=== PATIENT | female | born 1970 | race Caucasian/White ===

== ENCOUNTER → 2020-07-15 10:08 | Outpatient (CLI) | payer BC, SELFPAY ==
--- NOTE | ~2020-07-15 | MM_ITS ---
EXAMINATION: MM scrn мария implant BI w dante HISTORY: Screening mammogram TECHNIQUE: Craniocaudal and mediolateral oblique 3-D tomosynthesis images with implant displacement a nd synthetic 2-D images were generated. Craniocaudal and mediolateral oblique views of the breasts wi thout implant displacement were obtained using full field digital mammography. CAD analysis was submi tted and interpreted. COMPARISON: 07/10/2019, 11/05/2018, 05/15/2018, 05/01/2018, 05/11/2016 BREAST PARENCHYMAL COMPOSITION: The breasts are heterogeneously dense, which may obscure small masses . FINDINGS: Stable left breast masses are considered benign give the lack of interval change. There is no evidence of suspicious mass, calcification, or architectural distortion to suggest malignancy in e ither breast. There has been no suspicious interval change. IMPRESSION: 1. No mammographic evidence of malignancy. 2. Recommend routine screening mammography in one year. BI-RADS Category 2: Benign finding(s). Reviewed, dictated and finalized at location A. E CARPENTER
== END ==
PROVIDERS: Visit Provider Obstetrics & Gynecology
DX: Z12.31 Encounter for screening mammogram for malignant neoplasm of breast (principal)
CPT/HCPCS: 77063; 77067

== ENCOUNTER 2020-09-12 08:31 | Emergency (ER) | payer BC, SELFPAY ==
[2020-09-12 08:40] VITALS: BP 156/87; PULSE 67; RESP 16; TEMP 36.5; O2SAT 98
[2020-09-12 09:06] LABS: Add Urine Microscopic? YES; Appearance Urine Cloudy (Clear); Bacteria Urine Trace /hpf; Bilirubin Urine Negative (Negative); Blood Urine 2+ (Negative); Color Urine Yellow (Yellow); Glucose Urine UA Negative (Negative); Ketones Urine Negative (Negative); Leukocyte Esterase Ur 2+ LEU/UL (Negative); Mucus Urine Rare /lpf; Nitrate Urine Negative (Negative); Protein Urine Negative (Negative); RBC Urine >75 /hpf (0-2); Specific Grav Ur 1.023 (1.001-1.035); Squamous Epithelial Cell Urine Moderate /hpf (Few); Transitional Epi Cells Urine Rare /hpf (None Seen); Urobilinogen Urine Negative mg/dL (<2.0); WBC Clumps Urine Present /HPF; WBC Urine >75 /hpf
--- NOTE | 2020-09-12 09:20 | ED.ABDPAIN ---
HPI - Abdominal Pain General Chief Complaint: Urogenital-Female Stated Complaint: uti sx Time Seen by Provider: 09/12/20 09:09 Source: patient Mode of arrival: ambulatory Limitations: no limitations History of Present Illness HPI narrative: Patient a 50-year-old female who presents with acute onset of urgency frequency and mild discomfort with urination with low back pain consistent with her history of chronic UTIs she has seen primary care for this. Patient denies any fever chills nausea vomiting URI symptoms or other complaints has not taken anything for her symptoms presents in no distress. Notes that she does have Pyridium at home but has not taken it. Denies history of urolithiasis Related Data Allergies Allergy/AdvReac Type Severity Reaction Status Date / Time hydrocodone Allergy Unknown Verified 10/15/17 08:26 morphine Allergy Unknown Verified 10/15/17 08:26 tetracycline Allergy Unknown Verified 10/15/17 08:26 zolpidem Allergy Unknown Verified 10/15/17 08:26 Review of Systems Review of Systems: All systems reviewed & are unremarkable except as noted in HPI and below PMFSH Past Medical History Medical History (Updated 09/12/20 @ 09:54 by Parmjit Augustin PA-C) Frequent UTI Surgical History Surgical History H/O: hysterectomy Family History Family History (Updated 04/10/18 @ 14:06 by DOCTOR UNKNOWN) Other Cerebrovascular accident Depression Diabetes mellitus Family history of Alzheimer's disease Family history of lung cancer Family history of mental disorder Social History Social History Smoking status: Former smoker Alcohol intake: current Exam Narrative: Exam Narrative: GENERAL: Well-appearing, well-nourished, and in no acute distress. HEAD: Normocephalic, atraumatic. EYES: PERRLA and EOMI. ENT: Nares clear, no rhinorrhea or epistaxis. Mucous membranes moist. CHEST: Clear to auscultation. No respiratory distress. No wheezes rales or rhonchi HEART: Regular rate and rhythm. No murmur heard. Normal peripheral pulses. ABDOMEN: Soft, nontender, nondistended EXTREMITIES: Normal range of motion. No edema. SKIN: Warm, dry, no rash. NEURO: No focal deficits. Alert and oriented x3. PSYCH: Normal mood and affect. Course Course Emergency Course: Patient presented with urinary tract infection notes that she will follow with primary care for further evaluation afebrile nontoxic-appearing no distress vital signs and ABCs intact and stable patient provided with reasons to return patient notes that she typically has been given ciprofloxacin by primary care which has resolved her symptoms and prefers this antibiotic. Patient's urine cultures were reviewed Vital Signs Vital signs: Vital Signs Temperature 97.7 F 09/12/20 08:40 Pulse Rate 67 09/12/20 08:40 Respiratory Rate 16 09/12/20 08:40 Blood Pressure 156/87 H 09/12/20 08:40 Pulse Oximetry 98 09/12/20 08:40 Temperature 97.7 F 09/12/20 08:40 Pulse Rate 67 09/12/20 08:40 Respiratory Rate 16 09/12/20 08:40 Blood Pressure 156/87 H 09/12/20 08:40 Pulse Oximetry 98 09/12/20 08:40 MDM - Abdominal Pain MDM Narrative Medical decision making narrative: Patient with urinary tract infection will be treated accordingly provided with reasons to return felt appropriate for outpatient reevaluation Lab Data Labs: Lab Results 09/12/20 Range/Units 08:46 Urine Color Yellow (Yellow) Urine Appearance Cloudy H (Clear) Urine pH 5.0 (5.0-9.0) Ur Specific [place] 1.023 (1.001-1.035) Urine Protein Negative (Negative) mg/dL Urine Glucose (UA) Negative (Negative) mg/dL Urine Ketones Negative (Negative) mg/dL Ur Blood (Man) 2+ H (Negative) Urine Nitrate Negative (Negative) Urine Bilirubin Negative (Negative) Urine Urobilinogen Negative (<2.0) mg/dL Leukocyte Estera
== END 2020-09-12 10:05 | disposition home or self-care (01) ==
PROVIDERS: Emergency Provider Emergency Medicine
DX: N39.0 Urinary tract infection, site not specified (principal); Z87.891 Personal history of nicotine dependence
CPT/HCPCS: 81001; 87086; 87088; 99283

== ENCOUNTER 2020-12-16 04:37 | Emergency (ER) | payer BC, SELFPAY ==
[2020-12-16 04:40] VITALS: BP 132/86; PULSE 63; RESP 16; TEMP 36.6; O2SAT 100
--- NOTE | 2020-12-16 05:20 | ED.GENADULT ---
HPI - General Adult General Chief complaint: Urogenital-Female Stated complaint: UTI Time Seen by Provider: 12/16/20 04:50 History of Present Illness HPI narrative: Patient 50-year-old female presents emergency department with chief complaint of dysuria. Patient reports that she has prior history of urinary tract infections and reports that she has had issues with the hormonal variation both from estrogen and also her thyroid. Patient states recently adjusted her estrogen and reported that this evening approximately 1 hour ago she started having burning with urination frequency. The patient states this is her typical presentation for urinary infection and reports that she is allergic to tetracyclines and has problems with nausea when she takes sulfa medications. Patient reports that she is normally treated with Cipro. Patient denies flank pain denies nausea vomiting denies abdominal pain. Related Data Allergies Allergy/AdvReac Type Severity Reaction Status Date / Time hydrocodone Allergy Unknown Unknown Verified 09/12/20 13:15 morphine Allergy Unknown Unknown Verified 09/12/20 13:15 tetracycline Allergy Unknown Unknown Verified 09/12/20 13:15 zolpidem Allergy Unknown Unknown Verified 09/12/20 13:15 Review of Systems Review of Systems: Narrative: A 10 system review of systems was completed on the patient and is negative except for what is stated in the HPI. Nursing and ancillary documentation was reviewed. PMFSH Past Medical History Medical History Frequent UTI Surgical History Surgical History H/O: hysterectomy Family History Family History Other Cerebrovascular accident Depression Diabetes mellitus Family history of Alzheimer's disease Family history of lung cancer Family history of mental disorder Social History Social History Smoking status: Former smoker Alcohol intake: current Gender identity (if verbalized by the patient): Female Exam Narrative: Exam Narrative: GENERAL: Well-appearing, well-nourished, and in no acute distress. HEAD: Normocephalic, atraumatic. EYES: PERRLA and EOMI. ENT: Nares clear, no rhinorrhea or epistaxis. Mucous membranes moist. NECK: Supple. CHEST: Clear to auscultation. No respiratory distress. HEART: Regular rate and rhythm. No murmur heard. Normal peripheral pulses. ABDOMEN: Soft, nontender, nondistended, normal active bowel sounds. EXTREMITIES: Normal range of motion. No edema. SKIN: Warm, dry, no rash. NEURO: No focal deficits. Alert and oriented x3. PSYCH: Normal mood and affect. Course Vital Signs Vital signs: Vital Signs Temperature 36.6 C 12/16/20 04:40 Pulse Rate 63 12/16/20 04:40 Respiratory Rate 16 12/16/20 04:40 Blood Pressure 132/86 12/16/20 04:40 Pulse Oximetry 100 12/16/20 04:40 Temperature 36.6 C 12/16/20 04:40 Pulse Rate 63 12/16/20 04:40 Respiratory Rate 16 12/16/20 04:40 Blood Pressure 132/86 12/16/20 04:40 Pulse Oximetry 100 12/16/20 04:40 Medical Decision Making Vital Signs Vital Signs: Vital Signs Temperature 36.6 C 12/16/20 04:40 Pulse Rate 63 12/16/20 04:40 Respiratory Rate 16 12/16/20 04:40 Blood Pressure 132/86 12/16/20 04:40 Pulse Oximetry 100 12/16/20 04:40 Temperature 36.6 C 12/16/20 04:40 Pulse Rate 63 12/16/20 04:40 Respiratory Rate 16 12/16/20 04:40 Blood Pressure 132/86 12/16/20 04:40 Pulse Oximetry 100 12/16/20 04:40 Lab Data Labs: Lab Results 12/16/20 Range/Units 04:59 Urine Color Yellow (Yellow) Urine Appearance Cloudy H (Clear) Urine pH 6.0 (5.0-9.0) Ur Specific [place] 1.020 (1.001-1.035) Urine Protein 2+ H (Negative) mg/dL Urine Glucose (UA) Negative (Ne
[2020-12-16 05:31] LABS: Add Urine Microscopic? YES; Appearance Urine Cloudy (Clear); Bacteria Urine Trace /hpf; Bilirubin Urine Negative (Negative); Blood Urine 3+ (Negative); Color Urine Yellow (Yellow); Glucose Urine UA Negative (Negative); Ketones Urine Negative (Negative); Leukocyte Esterase Ur 3+ LEU/UL (Negative); Mucus Urine Rare /lpf; Nitrate Urine Negative (Negative); Protein Urine 2+ mg/dL (Negative); RBC Urine >75 /hpf (0-2); Squamous Epithelial Cell Urine Occasional /hpf (Few); Urobilinogen Urine Negative mg/dL (<2.0); WBC Urine >75 /hpf
[2020-12-16] MEDS: CIPROFLOXACIN 500 MG TAB PO (05:50)
[2020-12-16 05:57] VITALS: BP 130/65; PULSE 60; RESP 16; TEMP 37.1; O2SAT 100
== END 2020-12-16 05:58 | disposition home or self-care (01) ==
PROVIDERS: Emergency Provider Emergency Medicine; PCP Chiropractor
DX: N30.01 Acute cystitis with hematuria (principal); Z87.891 Personal history of nicotine dependence
CPT/HCPCS: 81001; 87077; 87086; 87088; 87186; 99283; A9270

== ENCOUNTER → 2021-01-04 10:28 | Outpatient (CLI) | payer BC, SELFPAY ==
--- NOTE | ~2021-01-04 | US_ITS ---
EXAMINATION: US thyroid DATE: 01/04/2021 10:46 INDICATION: Nontoxic goiter TECHNIQUE: Multiple ultrasound images of the thyroid were obtained. COMPARISON: None. FINDINGS: The right thyroid lobe measures 2.5 x 0.6 x 0.7 cm. The left thyroid lobe measures 1.7 x 0.6 x 0.5 c m. 3 mm hypoechoic nodule versus pseudo nodule in the superior right thyroid lobe which is, too smal l to assess whether solid or cystic. Regardless at this size lesion remains below threshold for recom mendation for either biopsy or follow-up imaging. There is diffuse coarsened echotexture with increas ed vascular flow on color Doppler. IMPRESSION: 1. Small thyroid with coarsened echotexture and increased vascularity consistent with chronic lymphoc ytic (Clarke) thyroiditis. Reviewed, dictated and finalized at location A. IMPRESSION: 1. Small thyroid with coarsened echotexture and increased vascularity consisten t with chronic lymphocytic (Clarke) thyroiditis.
== END ==
PROVIDERS: PCP Nurse Practitioner Adult Health; Visit Provider Nurse Practitioner Adult Health
DX: E04.9 Nontoxic goiter, unspecified (principal)
CPT/HCPCS: 76536

== ENCOUNTER 2021-04-25 10:32 | Emergency (ER) | payer BC, SELFPAY ==
[2021-04-25 10:35] VITALS: BP 158/97; PULSE 69; RESP 16; TEMP 37.2; O2SAT 100
--- NOTE | 2021-04-25 11:06 | ED.FEMALEGU ---
HPI - Female Genitourinary General Chief complaint: Urogenital-Female Stated complaint: POS UTI Time Seen by Provider: 04/25/21 11:06 Source: patient and RN notes reviewed Mode of arrival: ambulatory Limitations: no limitations History of Present Illness HPI Narrative: 51-year-old female presents with concern for possible urinary tract infection. Reports history of frequent UTIs, has had 9 UTIs so far this year. Reports she is working with her primary care doctor to increase hormone replacement which has been slightly decrease in the frequency of urinary tract infections. Reports she noticed foul odor in her urine for 1 day, which is often a symptom of her UTI. She denies dysuria, frequency, urgency, flank pain, nausea, vomiting, abdominal pain. Denies intervention. MD elicited complaint: UTI Related Data Allergies Allergy/AdvReac Type Severity Reaction Status Date / Time hydrocodone Allergy Unknown Unknown Verified 09/12/20 13:15 morphine Allergy Unknown Unknown Verified 09/12/20 13:15 tetracycline Allergy Unknown Unknown Verified 09/12/20 13:15 zolpidem Allergy Unknown Unknown Verified 09/12/20 13:15 Sulfa (Sulfonamide Allergy Rash Verified 04/25/21 10:39 Antibiotics) Review of Systems Review of Systems: CONSTITUTIONAL: Denies malaise, chills, sweats, or fever. CARDIOVASCULAR: Denies chest pain, palpitations, or edema. RESPIRATORY: Denies cough or dyspnea. GASTROINTESTINAL: Denies abdominal pain, nausea, vomiting, diarrhea, bloody, or mucous stools. GENITOURINARY: Denies dysuria, frequency, urgency, abnormal vaginal discharge, or hematuria. Reports foul-smelling odor SKIN: Denies vaginal rash or itching. MUSCULOSKELETAL: Denies back pain or myalgia. All systems reviewed & are unremarkable except as noted in HPI and below PMFSH Past Medical History Medical History Frequent UTI Surgical History Surgical History H/O: hysterectomy Family History Family History Other Cerebrovascular accident Depression Diabetes mellitus Family history of Alzheimer's disease Family history of lung cancer Family history of mental disorder Social History Social History Smoking status: Former smoker Alcohol intake: current Gender identity (if verbalized by the patient): Female Comments At time of signature, agree with nursing past medical, surgical, social and family history. There is no relevant family history pertinent to the presenting complaint Exam Narrative: GENERAL: Well-appearing, well-nourished, and in no acute distress. HEAD: Normocephalic. EYES: PERRLA, conjunctivae clear. NECK: Supple. No lymphadenopathy CHEST: Clear to auscultation. No respiratory distress. HEART: Regular rate and rhythm. ABDOMEN: Soft, nontender upon palpation, nondistended, normal active bowel sounds, no palpable or pulsatile masses, no guarding. No CVA tenderness SKIN: Warm, dry, no rash. NEURO: Alert and oriented x3. PSYCH: Normal mood and affect Course Course Emergency Course: Discussed with patient option of waiting for urine culture results to start antibiotic, due to unremarkable UA. Patient is agreeable with that, however reports due to her frequent urinary tract infections is worried symptoms might worsen before the urine culture is complete. Discussed sending an antibiotic, which she will wait to start until culture is resulted or if symptoms worsen. Patient is aware of diagnosis, understands and agrees to treatment plan. Anticipatory guidance given. Patient agrees to follow-up as directed and is aware of reasons to seek care at the emergency department. Portions of this record may have been created with voice recognition software Vital Signs Vital signs: Vital Signs Coleman
== END 2021-04-25 11:06 | disposition home or self-care (01) ==
LOC: EXPGLEN 10:34
PROVIDERS: Emergency Provider Nurse Practitioner; PCP Nurse Practitioner Adult Health
DX: R82.90 Unspecified abnormal findings in urine (principal); Z87.891 Personal history of nicotine dependence; Z87.440 Personal history of urinary (tract) infections
CPT/HCPCS: 81003; 87086; 99213; G0463

== ENCOUNTER 2021-05-26 09:24 | Emergency (ER) | payer BC, SELFPAY ==
--- NOTE | ~2021-05-26 | CT_ITS ---
EXAMINATION: CTA chest PE protocol EXAM DATE: 05/26/2021 10:22 INDICATION: COVID +, chest pain. TECHNIQUE: Spiral CTA of the chest (pulmonary arteries) was performed with 100 cc Omnipaque 350 intr avenous contrast injection. Images were acquired during the pulmonary arterial phase. Coronal maxi mum intensity projection 3D-reconstructions were created by the technologist on dedicated workstation . Axial, coronal and sagittal reformatted images were reviewed. The dose-length product (DLP) for t his examination was 229.41 mGy-cm. The exposure was tailored according to patient size (auto mA exp osure control), and iterative reconstruction (ASIR) was used as additional dose reduction technique. There is no prior study for comparison. FINDINGS: Pulmonary arteries are well opacified and without intraluminal filling defects. No thora cic aortic dissection. Bilateral small to moderate amount of patchy peripheral predominant groundglas s opacities Appearance is typical of early stage COVID 19 pneumonia. Less likely acute possibilitie s include influenza, pulmonary edema or hemorrhage. Some chronic processes that can have this appeara nce include cryptogenic organizing pneumonia, desquamative interstitial pneumonia, nonspecific inters titial pneumonia, drug toxicity, connective tissue disease. Please clinically correlate and test as a ppropriate. There are no pleural or pericardial effusions. Tracheobronchial tree is patent. There is no media stinal, hilar or axillary lymphadenopathy. There is no pneumothorax. Heart normal in size. No e vidence of coronary arterial calcification. Upper abdomen is unremarkable. There is thoracic spond ylosis without osteoblastic or osteolytic lesions identified. There are cholecystectomy clips. IMPRESSION: 1. Patchy bilateral groundglass airspace disease probably COVID 19 . 2. No pulmonary emboli. Reviewed, dictated and finalized at location A.
--- NOTE | ~2021-05-26 | XR_ITS ---
EXAMINATION: XR chest 1V portable EXAM DATE: 05/26/2021 09:58 INDICATION: COVID PUI, shortness of breath cough and fever. TECHNIQUE: Portable AP frontal chest x-ray was obtained. Comparison is made to prior examination from 05/15/2017. FINDINGS: Small amount of ill-defined right-sided predominant airspace disease suspected, could be CO VID pneumonia given history provided. No confluent consolidation, pneumothorax or pleural effusion anglin spected. Cardiomediastinal silhouette is normal. There are no osseous abnormalities identified. IMPRESSION: Small regions ill-defined infectious process suspected. Reviewed, dictated and finalized at location A.
--- NOTE | 2021-05-26 09:34 | ECG_ITS ---
Measurements Intervals [place] Rate: 93 P: 69 NV: 131 QRS: 92 QRSD: 85 T: 38 QT: 341 QTc: 426 Interpretive Statements SINUS RHYTHM RIGHT AXIS DEVIATION BASELINE ARTIFACT- V4-V6 BORDERLINE ECG Electronically Signed On 05-26-2021 9:54:18 CDT by Nilton Euceda D.O.
--- NOTE | 2021-05-26 09:43 | ED.SOB ---
HPI - SOB/Dyspnea General Chief Complaint: Shortness of Breath/Dyspnea Stated Complaint: covid +, sob Time Seen by Provider: 05/26/21 09:43 Source: patient Mode of arrival: ambulatory Limitations: no limitations History of Present Illness HPI Narrative: Patient is a 51-year-old female with a history of Clarke's thyroiditis who presents for evaluation of cough, fever, myalgias. Patient reports that she has been symptomatic with fever, dry cough, myalgias, lethargy since May 17. Patient's and son have tested positive for Covid. Patient is not vaccinated. She states that she did not get herself tested given they were both positive and she assumed that she had Covid illness based on her symptoms. She reports intermittent chest pain, but denies chest pain currently. She denies palpitations. No calf swelling or leg pain. Denies rashes. Denies loss of sense of taste or smell. Had diarrhea earlier in her course of illness which is now resolved. Patient decided to come to the emergency department when she had increasing shortness of breath at rest worsened with exertion. Related Data Allergies Allergy/AdvReac Type Severity Reaction Status Date / Time hydrocodone Allergy Unknown Unknown Verified 09/12/20 13:15 morphine Allergy Unknown Unknown Verified 09/12/20 13:15 tetracycline Allergy Unknown Unknown Verified 09/12/20 13:15 zolpidem Allergy Unknown Unknown Verified 09/12/20 13:15 Sulfa (Sulfonamide Allergy Rash Verified 04/25/21 10:39 Antibiotics) Review of Systems Review of Systems: CONSTITUTIONAL: Reports fever and chills EYES: Denies visual changes, redness, or discharge. ENT: Reports rhinorrhea, congestion CARDIOVASCULAR: Reports intermittent chest pain without palpitations RESPIRATORY: Reports cough and shortness of breath GASTROINTESTINAL: Denies abdominal pain, nausea, vomiting, or diarrhea. GENITOURINARY: Denies dysuria or hematuria. SKIN: Denies rash or itching. MUSCULOSKELETAL: Denies back pain, joint pain, reports myalgias NEUROLOGIC: Reports headache without numbness, reports feeling diffusely weak PMFSH Past Medical History Medical History Frequent UTI Surgical History Surgical History H/O: hysterectomy Family History Family History Other Cerebrovascular accident Depression Diabetes mellitus Family history of Alzheimer's disease Family history of lung cancer Family history of mental disorder Social History Social History Smoking status: Former smoker Alcohol intake: current Gender identity (if verbalized by the patient): Female Exam Narrative: GENERAL: Awake, alert, conversant, anxious appearing HEAD: Normocephalic, atraumatic. EYES: PERRLA and EOMI. ENT: Nares clear, no rhinorrhea or epistaxis. Mucous membranes moist. NECK: Supple. CHEST: No respiratory distress, breathing even and non labored HEART: Regular rate, sinus rhythm ABDOMEN:Non distended, non tender EXTREMITIES: Normal range of motion. No edema. SKIN: Warm, dry, no rash. NEURO:No focal deficits. Alert and oriented x3 Course Vital Signs Vital signs: Vital Signs Temperature 37.9 C H 05/26/21 09:52 Pulse Rate 88 05/26/21 09:52 Respiratory Rate 18 05/26/21 09:52 Blood Pressure 161/96 H 05/26/21 09:52 Pulse Oximetry 99 05/26/21 09:52 Temperature 37.9 C H 05/26/21 09:52 Pulse Rate 76 05/26/21 13:14 Respiratory Rate 16 05/26/21 13:14 Blood Pressure 145/110 H 05/26/21 13:14 Pulse Oximetry 99 05/26/21 13:14 MDM - SOB/Dyspnea MDM Narrative Medical decision making narrative: Patient is a 51-year home who presented for evaluation of cough, fever in the setting of was likely Covid illness. Patient does have 2 close exposures it with her son and has been be
[2021-05-26 09:52] VITALS: BP 161/96; PULSE 88; RESP 18; TEMP 37.9; O2SAT 99
[2021-05-26 09:53] LABS: Basophils Percent Auto 0.4 % (0.2-1.2); Eosinophils Percent Auto 0.2 % (0-4.4); Hematocrit 46.8 % (37.0-47.0); Hemoglobin 15.6 g/dL (12.0-15.0); Immature Granulocyte Absolute 0.01 K/mm3 (0.00-0.031); Immature Granulocyte Percent A 0.2 % (0-0.5); Lymphocytes Absolute Auto 2.01 K/mm3 (0.9-3.2); Lymphocytes Percent Auto 36.9 % (18.3-44.2); Mean Corpuscular HGB Conc 33.3 g/dl (32-36); Mean Corpuscular Hemoglobin 29.3 pg (26-34); Mean Platelet Volume 10.8 fl (7.4-10.4); Monocytes Absolute Auto 0.5 K/mm3 (0.1-0.6); Monocytes Percent Auto 9.7 % (2.6-8.5); Neutrophils Absolute Auto 2.9 K/mm3 (1.3-6.7); Neutrophils Percent Auto 52.6 % (45.5-73.1); Platelet Count Result 239 k/mm3 (150-375); Red Blood Count 5.32 M/mm3 (4.2-5.4); Red Cell Distribution Width 12.9 % (11.5-14.5); White Blood Count 5.4 K/mm3 (4.5-10.0)
[2021-05-26 10:09] LABS: Alanine Aminotransferase 27 U/L (4-35); Albumin Level 4.1 g/dL (3.5-5.1); Alkaline Phosphatase 93 U/L (38-126); Anion Gap 8 mmol/L (8-16); Aspartate Amino Transferase 33 U/L (14-36); Bilirubin,Total 0.5 mg/dL (0.2-1.3); Blood Urea Nitrogen 8 mg/dL (7-17); Calcium 8.2 mg/dL (8.4-10.2); Carbon Dioxide 26 mmol/L (22-30); Chloride 103 mmol/L (98-107); Estimated CRCL calculation 78 ml/min; Estimated Glomerular Filt Rate > 60; Glucose 100 mg/dL (65-110); Potassium 4.3 mmol/L (3.4-5.0); Sodium 137 mmol/L (137-145)
[2021-05-26] MEDS: SODIUM CHLORIDE 0.9% IV 1,000 ML 999 ML IV CONT (10:40)
[2021-05-26] MEDS: ACETAMINOPHEN 500 MG TABLET 1000 MG PO (10:41)
[2021-05-26 11:00] VITALS: BP 155/108; PULSE 72; RESP 15; O2SAT 100
[2021-05-26 11:57] LABS: INR 0.9; Prothrombin Time 11.8 Seconds (11.1-14.7)
[2021-05-26 11:58] LABS: Partial Thromboplastin Time 26.7 SECONDS (22.3-36.8)
[2021-05-26 12:19] LABS: Troponin I < 0.012 ng/mL (0.000-0.034)
[2021-05-26 13:14] VITALS: BP 145/110; PULSE 76; RESP 16; O2SAT 99
[2021-05-26 13:52] LABS: EDCOVIDSCREEN Negative (Negative)
[2021-05-26 18:35] LABS: SARS-CoV-2 RNA PCR Positive
== END 2021-05-26 14:53 | disposition home or self-care (01) ==
PROVIDERS: Emergency Provider Emergency Medicine; PCP Nurse Practitioner Adult Health
DX: U07.1 COVID-19 (principal); J06.9 Acute upper respiratory infection, unspecified; E06.3 Autoimmune thyroiditis; Z87.440 Personal history of urinary (tract) infections; Z87.891 Personal history of nicotine dependence; R94.31 Abnormal electrocardiogram [ECG] [EKG]; R91.8 Other nonspecific abnormal finding of lung field
CPT/HCPCS: 36415; 71045; 71275; 80053; 84484; 85025; 85610; 85730; 87426; 93005; 96360; 99284; A9270; C9803; J7030; Q9967; U0003; U0005

== ENCOUNTER → 2021-07-27 07:38 | Outpatient (CLI) | payer BC, SELFPAY ==
--- NOTE | ~2021-07-27 | US_ITS ---
EXAMINATION: US abdomen complete EXAM DATE: 07/27/2021 08:36 INDICATION: R10.12 - Left upper quadrant pain TECHNIQUE: Multiple grayscale and Doppler images of the complete abdomen were obtained (by a technolo gist who performed the scan) and subsequently reviewed. Comparison is made to prior examination from 10/01/2017. FINDINGS: The abdominal aorta is normal in caliber. Visualized portion IVC is patent. The pancreatic head a nd body are normal in appearance. The pancreatic tail is not visualized. The liver has normal echogenicity and contour. There are no focal liver lesions identified. Portal venous flow was seen in the hepatopedal, normal direction and has normal Doppler waveform. Common bile duct measures 1.3 mm, which is dilated, but not uncommon following cholecystectomy. There is mild intrahepatic biliary duct dilation. Gallbladder fossa unremarkable. Right kidney: There is normal contour and echogenicity. It measures 11.8 x 4.1 x 4.6 centimeters. There are no focal renal lesions identified. There is no hydronephrosis. Left kidney: There is normal contour and echogenicity. It measures 11.0 x 5.6 x 4.1 centimeters. T here are no focal renal lesions identified. There is no hydronephrosis. The spleen measures 9 centimeters and is morphologically normal. IMPRESSION: Biliary dilation, common finding post cholecystectomy. Reviewed, dictated and finalized at location A. SUPERVISOR
== END ==
PROVIDERS: PCP Family Medicine; Visit Provider Family Medicine
DX: R10.12 Left upper quadrant pain (principal)
CPT/HCPCS: 76700

== ENCOUNTER → 2021-09-08 13:05 | Outpatient (CLI) | payer BC, SELFPAY ==
--- NOTE | ~2021-09-08 | CT_ITS ---
EXAMINATION: CT abdomen w con INDICATION: Right upper quadrant pain TECHNIQUE: Computed tomographic images of the abdomen were obtained after the administration of 100 c c of Omnipaque 350 intravenous contrast. The dose-length product (DLP) was 292.94 mGy-cm. Automated e xposure control and iterative reconstruction technique were employed. COMPARISON: 09/30/2017 FINDINGS: Minimal dependent atelectasis is present in the lung bases. The heart size is normal. Parti ally imaged bilateral breast implants are noted. There is a small sliding hiatal hernia. There are ch anges of interval cholecystectomy. There is chronic marked enlargement of the common bile duct there is also mild chronic enlargement of the pancreatic duct. Cysts of the liver measure up to 4 mm. The s pleen and adrenal glands are normal. The kidneys are unremarkable. There are no pathologically enlarg ed abdominal lymph nodes. There is no free intraperitoneal gas or evidence of bowel obstruction. IMPRESSION: 1. No CT correlate for the patient's symptoms. 2. 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 3. Interval cholecystectomy. Reviewed, dictated and finalized at location F. WASHING MACHINE OPERATOR IMPRESSION: 1. No CT correlate for the patient's symptoms. 2. Chronic fusiform enlargement of the common bile duct suggestive of type I ch oledochal cyst. 3. Interval cholecystectomy.
== END ==
PROVIDERS: PCP Family Medicine; Visit Provider Family Medicine
DX: R10.12 Left upper quadrant pain (principal)
CPT/HCPCS: 74160; Q9967

== ENCOUNTER 2022-01-27 07:07 | Emergency (ER) | payer BC, SELFPAY ==
[2022-01-27] VITALS (18 sets, daily range): BP systolic 149–158; BP diastolic 85–103; PULSE 55–83; RESP 14–26; TEMP 36.4; O2SAT 97–100
--- NOTE | ~2022-01-27 | CT_ITS ---
EXAMINATION: CTA chest PE protocol DATE: 01/27/2022 09:01 INDICATION: Left chest and shoulder pain TECHNIQUE: Computed tomography angiography (CTA) of the chest was performed with 100 mL Omnipaque-350 intravenous contrast timed to evaluate the pulmonary arteries. Coronal maximum intensity projection 3D-reconstructions were created by the technologist. The dose-length product (DLP) was 212.29 mGy-cm. Automated exposure control and iterative reconstruction technique were employed. COMPARISON: 05/26/2021 FINDINGS: The pulmonary arteries are well-opacified. No pulmonary embolism is identified. The lungs are free of acute opacities. There is no pneumothorax. Bilateral breast implants are noted. No pathol ogically enlarged thoracic lymph nodes are identified. The heart size is normal. There is moderate th oracic spondylosis. IMPRESSION: 1. No pulmonary embolism or acute cardiopulmonary abnormality. Reviewed, dictated and finalized at location A.
--- NOTE | ~2022-01-27 | XR_ITS ---
EXAMINATION: XR shoulder LT min 2V INDICATION: Left shoulder pain TECHNIQUE: Four views of the left shoulder are submitted. COMPARISON: None FINDINGS: Normal alignment. No fracture. Glenohumeral and acromioclavicular joint spaces are normal. Soft tissues are unremarkable. IMPRESSION: 1. No acute osseous abnormality. Reviewed, dictated and finalized at location A.
--- NOTE | ~2022-01-27 | XR_ITS ---
EXAMINATION: XR chest 2V DATE: 01/27/2022 07:40 INDICATION: Left chest and shoulder pain TECHNIQUE: Frontal and lateral views of the chest are obtained COMPARISON: 05/26/2021 FINDINGS: The lungs are free of acute opacities. There is no pleural effusion or pneumothorax. The ca rdiomediastinal silhouette is normal. There is mild thoracic spondylosis. Surgical clips in the right upper quadrant are likely from prior cholecystectomy. IMPRESSION: 1. No acute cardiopulmonary abnormality. Reviewed, dictated and finalized at location A.
--- NOTE | 2022-01-27 07:12 | ECG_ITS ---
Measurements Intervals [place] Rate: 66 P: 64 HI: 138 QRS: 74 QRSD: 92 T: 44 QT: 405 QTc: 427 Interpretive Statements SINUS RHYTHM COMPARED TO ECG 05/26/2021 09:38:49 NO SIGNIFICANT CHANGES Electronically Signed On 01-27-2022 9:27:57 CDT by Mita Urena M.D.
[2022-01-27 07:34] LABS: Basophils Percent Auto 0.4 % (0.2-1.2); Eosinophils Absolute Auto 0.3 K/mm3 (0-0.3); Eosinophils Percent Auto 4.2 % (0-4.4); Hemoglobin 14.2 g/dL (12.0-15.0); Immature Granulocyte Absolute 0.02 K/mm3 (0.00-0.031); Immature Granulocyte Percent A 0.3 % (0-0.5); Lymphocytes Absolute Auto 2.52 K/mm3 (0.9-3.2); Lymphocytes Percent Auto 34.5 % (18.3-44.2); Mean Corpuscular Hemoglobin 29.2 pg (26-34); Mean Corpuscular Volume 88.5 fl (80-100); Monocytes Absolute Auto 0.7 K/mm3 (0.1-0.6); Monocytes Percent Auto 9.3 % (2.6-8.5); Neutrophils Absolute Auto 3.8 K/mm3 (1.3-6.7); Neutrophils Percent Auto 51.3 % (45.5-73.1); Platelet Count Result 277 k/mm3 (150-375); Red Blood Count 4.86 M/mm3 (4.2-5.4); Red Cell Distribution Width 12.4 % (11.5-14.5); White Blood Count 7.3 K/mm3 (4.5-10.0)
--- NOTE | 2022-01-27 07:37 | ED.EXTPRO ---
HPI - Extremity Problem General Chief complaint: Extremity Problem,Nontraumatic Stated complaint: left shoulder pain Time Seen by Provider: 01/27/22 07:12 History of Present Illness HPI Narrative: 51-year-old female presents to the emergency department for evaluation of left lateral chest and left arm pain. Patient states that she woke up this morning she was having back pain that radiated around from her scapula laterally to her left chest. Patient states she does also have some associated decreased sensation of her left arm. Patient describes the pain as sharp. Patient denies any associated shortness of breath. Patient denies any incident of injury. Patient denies any previous cardiac issues. Patient denies any recent illnesses coughs colds or fevers. Related Data Home Medications Medication Instructions Recorded Confirmed cholecalciferol (vitamin D3) 125 125 mcg PO DAILY 07/06/21 01/11/22 mcg (5,000 unit) capsule liothyronine 25 mcg tablet 25 mcg PO DAILY 07/06/21 01/11/22 progesterone micronized 100 mg 50 mg PO QAM 07/06/21 01/11/22 capsule (Prometrium) testosterone cypionate 200 mg/mL See Rx Instructions IM ONCE 07/06/21 01/11/22 intramuscular oil conjugated estrogens 25 mg See Rx Instructions IM ONCE 01/11/22 01/11/22 solution for injection levothyroxine 100 mcg capsule 100 mcg PO DAILY 01/11/22 01/11/22 (Tirosint) Allergies Allergy/AdvReac Type Severity Reaction Status Date / Time hydrocodone Allergy Unknown Unknown Verified 01/27/22 07:18 morphine Allergy Unknown Unknown Verified 01/27/22 07:18 tetracycline Allergy Unknown Unknown Verified 01/27/22 07:18 zolpidem Allergy Unknown Unknown Verified 01/27/22 07:18 Sulfa (Sulfonamide Allergy Rash Verified 01/27/22 07:18 Antibiotics) Review of Systems Review of Systems: CONSTITUTIONAL: Denies fever, chills, or sweats. EYES: Denies visual changes, redness, or discharge. ENT: Denies rhinorrhea, congestion, sore throat, or otalgia. CARDIOVASCULAR: See HPI RESPIRATORY: See HPI GASTROINTESTINAL: Denies abdominal pain, nausea, vomiting, or diarrhea. GENITOURINARY: Denies dysuria or hematuria. SKIN: Denies rash or itching. MUSCULOSKELETAL: Denies back pain, joint pain, or myalgia. NEUROLOGIC: Denies headache, numbness, or weakness. [facility] Past Medical History Medical History Abdominal pain BMI 26.0-26.9,adult BMI 27.0-27.9,adult Frequent UTI Hormone imbalance LUQ pain Thyroid disease Surgical History Surgical History H/O: hysterectomy History of breast augmentation History of Hx of knee surgery Family History Family History Other Cerebrovascular accident Depression Diabetes mellitus Family history of Alzheimer's disease Family history of lung cancer Family history of mental disorder Social History Social History Tobacco type: cigarettes Alcohol intake: current Gender identity (if verbalized by the patient): Female Exam Narrative: APPEARANCE: Well appearing, no pain, no distress, well-nourished. HEAD: normocephalic, atraumatic. EYES: PERRLA/EOMI, conjunctivae clear. NOSE: Normal no drainage NECK: Supple. No adenopathy, no masses. RESPIRATORY: Airway patent, respirations nonlabored. Clear to auscultation bilaterally, no rales, rhonchi, wheezing. CARDIOVASCULAR: Regular rate and rhythm without murmurs rubs or gallops. Reproducible left lateral tenderness to palpation. ABDOMINAL: Soft, nontender, nondistended, normal bowel sounds MUSCULOSKELETAL: Moves all extremities. Strength/ROM intact, No edema, No calf tenderness. NEURO: Alert. Cranial nerves II through XII intact. Good gait. Good coordination SKIN: Warm, dry. Normal Color. No overlying rash or cellulitis or abnormality at the area of left
[2022-01-27 07:44] LABS: Alanine Aminotransferase 21 U/L (6-35); Albumin Level 3.8 g/dL (3.5-5.1); Alkaline Phosphatase 67 U/L (38-126); Anion Gap 2 mmol/L (8-16); Aspartate Amino Transferase 27 U/L (14-36); Bilirubin,Total 0.5 mg/dL (0.2-1.3); Blood Urea Nitrogen 13 mg/dL (7-17); Calcium 8.3 mg/dL (8.4-10.2); Carbon Dioxide 25 mmol/L (22-30); Chloride 107 mmol/L (98-107); Estimated CRCL calculation 87 ml/min; Estimated Glomerular Filt Rate > 60; Glucose 100 mg/dL (65-110); Lipase 208 U/L (23-300); Potassium 4.3 mmol/L (3.4-5.0); Sodium 134 mmol/L (137-145)
[2022-01-27 07:46] LABS: Partial Thromboplastin Time 23.6 SECONDS (22.3-36.8); Prothrombin Time 13.2 Seconds (11.1-14.7)
[2022-01-27 07:55] LABS: Troponin I < 0.012 ng/mL (0.000-0.034)
[2022-01-27 08:13] LABS: D Dimer 0.55 ug/mL (<0.48)
[2022-01-27] MEDS: ASPIRIN 81 MG CHEWABLE TABLET 324 MG PO (08:21)
[2022-01-27] MEDS: NITROGLYCERIN SL 0.4 MG TABLET SUBLINGUAL (08:22)
[2022-01-27 10:37] LABS: Troponin I < 0.012 ng/mL (0.000-0.034)
[2022-01-27] MEDS: KETOROLAC 15 MG/ML VIAL (*BKC) IV PUSH (11:26)
== END 2022-01-27 11:38 | disposition home or self-care (01) ==
PROVIDERS: Emergency Provider Emergency Medicine; PCP Family Medicine
DX: R09.1 Pleurisy (principal); E07.9 Disorder of thyroid, unspecified; F17.210 Nicotine dependence, cigarettes, uncomplicated
CPT/HCPCS: 36415; 71046; 71275; 73030; 80053; 83690; 84484; 85025; 85380; 85610; 85730; 93005; 96374; 99284; A9270; J1885; Q9967

== ENCOUNTER → 2022-04-06 15:27 | Outpatient (CLI) | payer BC, SELFPAY ==
--- NOTE | ~2022-04-06 | MM_ITS ---
EXAMINATION: MM scrn мария implant BI w dante HISTORY: Screening mammogram TECHNIQUE: Craniocaudal and mediolateral oblique 3-D tomosynthesis images with implant displacement a nd synthetic 2-D images were generated. Craniocaudal and mediolateral oblique views of the breasts wi thout implant displacement were obtained using full field digital mammography. CAD analysis was submi tted and interpreted. COMPARISON: 07/15/2020, 07/10/2019, 05/01/2018 bilateral implant screening mammogram examinations 11/05/2018 complete left breast ultrasound BREAST PARENCHYMAL COMPOSITION: The breasts are heterogeneously dense, which may obscure small masses . FINDINGS: Status post bilateral augmentation mammoplasty There is no evidence of suspicious mass, allen cification, or architectural distortion to suggest malignancy in either breast. There has been no carlos picious interval change. IMPRESSION: 1. No mammographic evidence of malignancy. 2. Recommend routine screening mammography in one year. BI-RADS Category 2: Benign finding(s). Reviewed, dictated and finalized at location A.
== END ==
PROVIDERS: Visit Provider Obstetrics & Gynecology
DX: Z12.31 Encounter for screening mammogram for malignant neoplasm of breast (principal)
CPT/HCPCS: 77063; 77067

== ENCOUNTER 2022-05-25 07:30 | Outpatient (CLI) | payer BC, SELFPAY ==
--- NOTE | 2022-05-25 | ECG_ITS ---
Measurements Intervals [place] Rate: 74 P: 72 FL: 129 QRS: 86 QRSD: 92 T: 59 QT: 389 QTc: 433 Interpretive Statements SINUS RHYTHM POSSIBLE LEFT ATRIAL ENLARGEMENT BASELINE ARTIFACT- I, II, III, AVR, AVL BORDERLINE ECG COMPARED TO ECG 01/27/2022 07:19:13 NO SIGNIFICANT CHANGES Electronically Signed On 05-25-2022 8:11:27 CDT by Nilton Euceda D.O.
== END 2022-05-25 07:31 | disposition home or self-care (01) ==
LOC: ANHLAB 07:32
PROVIDERS: Visit Provider Nurse Practitioner Adult Health
DX: Z01.818 Encounter for other preprocedural examination (principal)
CPT/HCPCS: 93005

== ENCOUNTER → 2022-12-24 08:25 | Outpatient (CLI) | payer BC, SELFPAY ==
--- NOTE | ~2022-12-24 | XR_ITS ---
EXAMINATION: XR ankle LT 2V, XR ankle RT 2V, XR foot LT 2V, XR foot RT 2V DATE: 12/24/2022 09:49 INDICATION: Multiple joint pain TECHNIQUE: 1. Anteroposterior and lateral view of the left ankle were obtained. 2. Dorsoplantar and lateral views of the left foot were obtained. 3. Anteroposterior and lateral view of the right ankle were obtained. 4. Dorsoplantar and lateral views of the right foot were obtained. COMPARISON: None. FINDINGS: Left foot and ankle: Alignment of the left foot and ankle is normal. No fracture or osteochondral lesion. Mild polyarticul ar osteoarthritis involving several of the tarsal metatarsal, metatarsophalangeal and interphalangeal joints. No erosions to suggest an inflammatory arthritis. No periosteal reaction. Small Achilles and plantar calcaneal spurs. No ankle joint effusion. Soft tissues are unremarkable. Right foot and ankle: Alignment of the right foot and ankle is normal. No fracture or osteochondral lesion. Relatively symm etric pattern of mild polyarticular osteoarthritis at several of the tarsal metatarsal, metatarsophal angeal and interphalangeal joints. No erosions to suggest an inflammatory arthritis. No periosteal re action. Small Achilles and plantar calcaneal spurs. No ankle joint effusion. The soft tissues are unr emarkable. IMPRESSION: 1. Relatively symmetric pattern of mild polyarticular osteoarthritis at the bilateral mid and forefee t. 2. Bilateral small Achilles and plantar calcaneal spurs. Reviewed, dictated and finalized at location B. IMPRESSION: 1. Relatively symmetric pattern of mild polyarticular osteoarthritis at the basil ateral mid and forefeet. 2. Bilateral small Achilles and plantar calcaneal spurs. IMPRESSION: 1. Relatively symmetric pattern of mild polyarticular osteoarthritis at the basil ateral mid and forefeet. 2. Bilateral small Achilles and plantar calcaneal spurs. IMPRESSION: 1. Relatively symmetric pattern of mild polyarticular osteoarthritis at the basil ateral mid and forefeet. 2. Bilateral small Achilles and plantar calcaneal spurs.
--- NOTE | ~2022-12-24 | XR_ITS ---
EXAMINATION: XR_KNEE1-2VLT_CR, XR_KNEE1-2VRT_CR DATE: 12/24/2022 09:49 INDICATION: Multiple joint pain. TECHNIQUE: 1. Weight bearing anteroposterior and lateral views of the left knee were obtained. 2. Weight bearing anteroposterior and lateral views of the right knee were obtained. COMPARISON: None. FINDINGS: Normal alignment at both knees. No fractures. Joint spaces appear normal in all 3 compartments of bot h knees. Tiny marginal osteophytes at the cephalad aspect of the bilateral patellae with additional a symmetric small marginal osteophytes at the lateral left patella and trochlea consistent with at leas t mild bilateral patellofemoral osteoarthritis. Soft tissues are unremarkable with no knee joint effu sions. IMPRESSION: 1. Mild bilateral patellofemoral osteoarthritis. Reviewed, dictated and finalized at location B. IMPRESSION: 1. Mild bilateral patellofemoral osteoarthritis.
--- NOTE | ~2022-12-24 | XR_ITS ---
EXAMINATION: XR hand RT 2V, XR wrist LT 2V, XR wrist RT 2V, XR hand LT 2V DATE: 12/24/2022 09:49 INDICATION: Multiple joint pain TECHNIQUE: 1. Posteroanterior and lateral views of the left wrist were obtained. 2. Dorsal palmar and lateral views of the left hand were obtained. 3. Posteroanterior and lateral views of the right wrist were obtained. 4. Dorsal palmar and lateral views of the right hand were obtained. COMPARISON: None. FINDINGS: Left hand and wrist: Alignment of the left hand and wrist is normal. No fracture identified. Mild osteoarthritis at the d istal radioulnar and several interphalangeal joints. No cortical erosions to suggest inflammatory art hritis. No focal soft tissue swelling. Right hand and wrist: Alignment of the right hand and wrist is normal. No fracture identified. Similar pattern of mild ost eoarthritis at the distal radioulnar and multiple interphalangeal joints. No erosions. No focal soft tissue swelling. IMPRESSION: 1. Relatively symmetric typical pattern of mild polyarticular osteoarthritis at the bilateral distal radioulnar and multiple interphalangeal joints. Reviewed, dictated and finalized at location B. IMPRESSION: 1. Relatively symmetric typical pattern of mild polyarticular osteoarthritis at the bilateral distal radioulnar and multiple interphalangeal joints. IMPRESSION: 1. Relatively symmetric typical pattern of mild polyarticular osteoarthritis at the bilateral distal radioulnar and multiple interphalangeal joints. IMPRESSION: 1. Relatively symmetric typical pattern of mild polyarticular osteoarthritis at the bilateral distal radioulnar and multiple interphalangeal joints.
--- NOTE | ~2022-12-24 | XR_ITS ---
EXAMINATION: XR hip BI wo pelvis DATE: 12/24/2022 09:49 INDICATION: Multiple joint pain. TECHNIQUE: Anteroposterior and frog-leg lateral views of the left and right hips were obtained. COMPARISON: None. FINDINGS: Alignment is normal. No fracture or suspected osteonecrosis. Bone island at the left femoral head. Bi lateral hip joint spaces are normal. Mild bilateral sacroiliac osteoarthritis. Soft tissues are unrem arkable. IMPRESSION: 1. Mild bilateral sacroiliac osteoarthritis with normal bilateral hips. Reviewed, dictated and finalized at location B.
== END ==
PROVIDERS: PCP Family Medicine; Visit Provider Internal Medicine Rheumatology
DX: M16.0 Bilateral primary osteoarthritis of hip (principal); M17.0 Bilateral primary osteoarthritis of knee; M19.042 Primary osteoarthritis, left hand; M19.041 Primary osteoarthritis, right hand; M19.072 Primary osteoarthritis, left ankle and foot; M19.071 Primary osteoarthritis, right ankle and foot; M77.32 Calcaneal spur, left foot; M77.31 Calcaneal spur, right foot
CPT/HCPCS: 73100; 73120; 73521; 73560; 73600; 73620

== ENCOUNTER → 2023-09-23 10:12 | Outpatient (REF) | payer BC, SELFPAY | LOC: ANHLAB 10:12 | PROVIDERS: PCP Family Medicine; Visit Provider Plastic Surgery | DX: L72.3 Sebaceous cyst (principal) | CPT/HCPCS: 88305 ==

== ENCOUNTER 2024-07-02 15:51 | Outpatient (CLI) | payer BC, SELFPAY ==
--- NOTE | ~2024-07-02 | MM_ITS ---
EXAMINATION: MM screening мария BI w dante HISTORY: Screening TECHNIQUE: Craniocaudal and mediolateral oblique 3-D tomosynthesis images were obtained and synthetic 2-D images were generated. CAD analysis was submitted and interpreted. COMPARISON: Comparison to multiple prior studies sequentially, with oldest reviewed study dated 11/05. BREAST PARENCHYMAL COMPOSITION: Dense: The breasts are heterogeneously dense, which may obscure small masses FINDINGS: There is no evidence of suspicious mass, calcification, or architectural distortion to sugg est malignancy in either breast. There has been no suspicious interval change. IMPRESSION: 1. No mammographic evidence of malignancy. 2. Recommend routine screening mammography in one year. BI-RADS Category 1: Negative Reviewed, dictated and finalized at location B. ING ADMIN
== END 2024-07-02 15:52 | disposition home or self-care (01) ==
LOC: ANHIMG 15:52
PROVIDERS: PCP Nurse Practitioner Adult Health; Visit Provider Obstetrics & Gynecology
DX: Z12.31 Encounter for screening mammogram for malignant neoplasm of breast (principal)
CPT/HCPCS: 77063; 77067

== ENCOUNTER 2024-11-26 14:20 | Emergency (ER) | payer BC, SELFPAY ==
--- NOTE | ~2024-11-26 | CT_ITS ---
EXAMINATION: CT abdomen pelvis w con DATE: 11/26/2024 16:23 INDICATION: Epigastric pain. Nausea and vomiting TECHNIQUE: Computed tomography (CT) of the abdomen and pelvis was performed with 100 cc Omnipaque 350 intravenous contrast. The dose-length product was 510.82 mGy-cm. Automated exposure control and iter ative reconstruction technique were employed. COMPARISON: CT dated 09/08/2021. FINDINGS: Lung bases are unremarkable. Heart size normal. There are breast implants. No significant p leural or pericardial effusion. There is a small low-density lesion right hepatic lobe, most likely b enign cysts. There is chronic fusiform dilation of the common bile duct which may represent a type I choledochal cyst. There is mild intrahepatic biliary dilatation. The spleen, pancreas, adrenal glands and kidneys are unremarkable. Nonobstructive bowel gas pattern. No abnormal pelvic masses or fluid c ollections. No significant vascular abnormality. There are cholecystectomy clips. No lymphadenopathy. No acute osseous abnormality. No focal lytic or blastic lesions. IMPRESSION: 1. No acute abdominal abnormality. 2: Chronic fusiform dilation of the common bile duct, suspicious for type I choledochal cyst. Reviewed, dictated and finalized at location A. IMPRESSION: 1. No acute abdominal abnormality. 2: Chronic fusiform dilation of the common bile duct, suspicious for type I cho ledochal cyst.
[2024-11-26 14:22] VITALS: BP 160/87; PULSE 87; RESP 18; TEMP 36.7; O2SAT 100
--- OUTSIDE RECORDS SUMMARY | 2024-11-26 14:43 | XMS_ITS | Clinical Summary ---
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 Gender Identity Not on file Sexual Orientation Not on file Plan of Treatment Health Maintenance Due Date Last Done Comments Cervical Cancer Screening Pa p Smear (Age 30 to 64) Every 3 Years 1968 Colorectal Cancer Screening Colonoscopy (10 Years) 1968 Annual Physical 02/22/1971 Hepatitis C 02/22/1986 DTaP, Tdap and Td Vaccines ( 1 - Tdap) 02/22/1987 Hepatitis B Vaccines (1 of 3 - 19+ 3-dose series) 02/22/1987 Cervical Cancer Screening Pa p with HPV Testing (Age 30 to 64) Every 5 Years 02/22/1998 Cervical Cancer Screening with HPV 02/22/1998 Mammogram Screening 2008 Zoster Vaccines (1 of 2) 02/22/2018 COVID-19 Vaccine (2023-2 5 season) 2024 Meningococcal B Vaccine Aged Out No l onger eligible based on patient's age to complete this topic Meningococcal Vaccine Aged Out No jacqueline honorio eligible based on patient's age to complete this topic Pneumococcal Vaccine: Pediat rics (0 to 5 Years) and At-Risk Patients (6 to 64 Years) Aged Out No longer eligible b ased on patient's age to complete this topic RSV Immunizations Under 20 Months Aged Out No longer eligible based on patient's age to complete this topic Insurance [facility] Care Teams Shirt Hemmer Relationship Specialty Start Date End Date Linette Sanchez PA-C [address] [address] PCP - General BLOW PIT OPERATOR 02/04/23
--- OUTSIDE RECORDS SUMMARY | 2024-11-26 14:44 | XMS_ITS | Patient Health Record ---
Author Organization [facility] Address [address] [place] [address] Care Team Providers Care Guest Experience Manager Name Role Phone Nahomi puentes Unavailable [phone] [facility], Provider Unavailable Unavailab le Allergies Allergen (clinical drug ingredient) Drug/Non Drug Allergy documented on EMR Reaction Allergy Type Onset Date Status tetracycline TETRACYCLINE TOPICAL (uncoded) anaphylaxis Allergy Active zolpidem Ambien other reaction Drug Allergy Ac tive sulfacetamide Sulfacetamide Sodium (Acne) rash Drug Allergy Active hydrocodone HYDROcodone vomiting Drug Allergy Act jerry morphine Morphine rash Drug Allergy Active Reason For Referral No Information Medications Medication SIG (Take, Route, Frequency, Duration) Notes Start Date End Date Status LIOTHYRONINE 10 mcg/mL 40 ml orally four times a day Active PROGESTERONE 200 mg as directed twice daily for 90 days Active Liothyronine Sodium 10 MCG/ML 40 ML ORALLY FOUR TIMES A DAY *Please review and pick correct strength-formulat ion from [employer] options. If intended option is not shown, discontinue and re-order from Quick Search* Active TIROSINT 125 mcg (0.125 mg) TAKE ONE CAPSULE BY MOUTH DAILY for 90 days Active Tirosint 125 MCG (0.125 MG) TAKE ONE CAPSULE BY MOUTH DAILY for 90 DAYS *Please review and pick correct strength-formulat ion from [employer] options. If intended option is not shown, discontinue and re-order from Quick Search* Active Progesterone 200 MG as directed twice daily for 90 days Active Lysine 1000 MG 1 tab(s) orally once a day Active Vitamin D3 125 MCG 1 TAB(S) ORALLY ONCE A DAY *Please review and pick correct strength-formulat ion from [employer] options. If intended option is not shown, discontinue and re-order from Quick Search* Active VITAMIN D3 125 mcg 1 tab(s) orally once a day Active Estradiol 0.1 MG/24 HOURS TWICE WEEKLY 1 TAB(S) ORALLY ONCE A DAY *Please review and pick correct strength-formulat ion from [employer] options. If intended option is not shown, discontinue and re-order from Quick Search* Active LYSINE 1000 mg 1 tab(s) orally once a day Active Testosterone 2 MG/24 HR DIRECTED 6 MG TOTAL INTRAMUSCULARLY WEEKLY *Please review and pick correct strength-formulat ion from [employer] options. If intended option is not shown, discontinue and re-order from Quick Search* Active TESTOSTERONE 2 mg/24 hr as directed 6 mg total intramuscularly weekly Active ESTRADIOL 0.1 mg/24 hours twice weekly 1 tab(s) orally once a day Active Social History Tobacco Use: Social History Observation Description Date Details (start date - stop date) Former Smoker NA - NA Smoking Smart Form: Question Answer Notes Are you a: former smoker Problems Problem Type SNOMED Code ICD Code Onset Dates Problem Status W/U Status Risk Notes Problem Allergic rhinitis caused by pollen (disorder) (30776343) Allergic rhinitis due to pollen (J30.1) Active confirmed Problem Allergic rhinitis (07337010) Other allergic rhinitis (J30.89) Active confirmed Problem Ingestion dermatitis caused by food (118101240) Dermatitis due to ingested food (L27.2) Active confirmed Problem Dysphagia (64368193) Dysphagia, unspecified (R13.10) Active confirmed Problem Adverse reaction to food (990055079) Other adverse food reactions, not elsewhere classified, initial encounter (T78.1XXA) Active confirmed Encounters Encounter Location Date Provider Diagnosis [facility] [address] [address] 02/08/2024 Provider [facility] Plan Of Treatment No Information Insurance Providers Payer Name Payer Address Payer Phone Subscriber Number Group Number Insured Name Patient Relationship to Insured Coverage Start Date Coverage End Date [facility] [id number] [place] [address] [id number] Sascha Trejo Spouse - patient is the spouse of the insured 4 Medical (General) History Medical History History ICD Code Hypothyroidism Surgical History Surgery Date(Month/Year) Tonsillectomy 1984 C-sections [id number] Knee chondroplasty 2015 Breast surgery lump breast implants 03/17 Hospitalization History Reason Date(Month/Year) child [id number]
--- OUTSIDE RECORDS SUMMARY | 2024-11-26 14:44 | XMS_ITS ---
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 Container Crane Operator Name Role Phone Nahomi Fajardo Unavailable [phone] Allergies Allergen (clinical drug ingredient) Drug/Non Drug Allergy documented on EMR Reaction Allergy Type Onset Date Status zolpidem Ambien other reaction Drug Allergy Ac tive morphine morphine rash Drug Allergy Active sulfacetamide sulfacetamide sodium topical rash Drug Allergy Active tetracycline topical anaphylaxis Drug Allergy Active HYDROcodone vomiting Drug Allergy Activ e REASON FOR VISIT Concerns for food allergies to multiple foods for occasional throat itching and diarrhea., Historical dysphagia with episodes of food sticking - reports normal EGD approximately 5 years ago. Medications Medication SIG (Take, Route, Frequency, Duration) Notes Start Date End Date Status PROGESTERONE 200 mg as directed twice da cinthya for 90 days Active TIROSINT 125 mcg (0.125 mg) TAKE ONE CAPSULE BY MOUTH DAILY for 90 days Active ESTRADIOL 0.1 mg/24 hours twice weekly 1 tab(s) orally once a day A ctive LIOTHYRONINE 10 mcg/mL 40 ml orally four times a day Active TESTOSTERONE 2 mg/24 hr as directed 6 mg total intramuscularly weekly Active VITAMIN D3 125 mcg 1 tab(s) orally once a day Active Social History Tobacco Use: Social History Observation Description Date Details (start date - stop date) Former Smoker NA - NA Smoking Smart Form: Question Answer Notes Are you a: former smoker Problems Problem Type SNOMED Code ICD Code Onset Dates Problem Status W/U Status Risk Notes Problem Dysphagia (44921279) Dysphagia, unspecified (R13.10) Active confirmed Problem Ingestion dermatitis caused by food (602143089) Dermatitis due to ingested food (L27.2) Active confirmed Problem Adverse reaction to food (209021205) Other adverse food reactions, not elsewhere classified, initial encounter (T78.1XXA) Active confirmed Vital Signs Blood pressure systolic 146 mm Hg 10/02/19 24 Blood pressure diastolic 91 mm Hg 024 Respiratory Rate 18 /min 10/02/2023 Height 66 in 10/02/2023 Weight 175 lbs 10/02/2023 BMI 28.24 kg/m2 10/02/2023 Oximetry 98 % 10/02/2023 Encounters Encounter Location Date Provider Diagnosis [facility] [address] [place] [address] 10/02/2023 Nahomi Fajardo Dermatitis due to ingested food L27.2 ; Other adverse food reactions, not elsewhere classified, initial encounter T78.1XXA ; Dysphagia, unspecified R13.10 and Elevated blood-pressure reading, without diagnosis of hypertension R03.0 Assessments Encounter Date Diagnosis (ICD Code) Assessment Notes Treatment Notes Treatment Clinical Notes Section Notes 10/02/2023 Dermatitis due to ingested food (ICD-10 - L27.2) Myself and Dr. Gordon discussed our low suspicion for IgE-mediated food allergy to peanuts at length with patient. Patient stated multiple times throughout the visit she came for skin testing to peanut despite recommendations. Discussed skin testing 6-8 weeks after reaction. - I offered to order AIE, but patient refused stating I will only get one if the skin testing determines I'm allergic -I encouraged yrte for further episodes, but patient refused stating I don't take any of that medication -Consider aeroallergen skin testing as stated above. -Follow-up in 4-6 weeks for skin testing. Instructed to hold all antihistamines 7-10 days prior to skin testing. 10/02/2023 Other adverse food reactions, not elsewhere classified, initial encounter (ICD-10 - T78.1XXA) History of GI symptoms with certain foods do not appear to be c/w IgE-mediated reactions. These reactions are likely related to her autoimmune disease. Given this, myself and Dr. Gordon discussed with patient at length that empirical food testing is not recommended due to possibility of false-positives. Patient is still wanting skin testing to almond and peanut if insurance is paying for it. She does report oral symptoms with almond ingestion. Discussed Oral Allergy Syndrome with patient. -Skin testing unable to be completed today as reaction occurred 2 weeks ago, recommend skin testing 6-8 weeks after. -Discussed aeroallergen skin testing to determine atopy status. Patient is considering. Discussed with patient her insurance allows up to 75 prick tests. We could do aeroallegen skin testing in addition to peanut and almond at next visit. She verbalized understanding. She is considering aeroallergen skin testing. 10/02/2023 Dysphagia, unspecified (ICD-10 - R13.10) Abdullahi reports a hisory of dysphagia with episodes of food sticking, does not correlate sticking with any specific foods. She believes this is related to her thyroid as she reports worsening symptoms when thyroid lab values are elevated. She reports a normal EGD 5 years ago, does not know name of GI specialist. Does not believe biopsy was done at that time. -Consider determining atopy status as stated above, though patient denies all upper airway symptoms and reports negative testing at Dr. Rodrigues's office approximately 5 years ago. Patient is considering aeroallergen skin testing. -Consider GI referral per PCP for repeat EGD with biopsy 10/02/2023 Elevated blood-pressure reading, without diagnosis of hypertension (ICD-10 - R03.0) BP elevated today without symptoms of urgency or emergency. Continue serial checks and follow-up with PCP 10/02/2023 Other Plan Of Treatment Treatment Notes Assessment Notes Dermatitis due to ingested food Myself and Dr. Gordon discussed our low suspicion for IgE-mediated food allergy to peanuts at length with patient. Patient stated multiple times throughout the visit she came for skin testing to peanut despite recommendations. Discussed skin testing 6-8 weeks after reaction. - I offered to order AIE, but patient refused stating I will only get one if the skin testing determines I'm allergic -I encouraged yrte for further episodes, but patient refused stating I don't take any of that medication -Consider aeroallergen skin testing as stated above. -Follow-up in 4-6 weeks for skin testing. Instructed to hold all antihistamines 7-10 days prior to skin testing. Other adverse food reactions , not elsewhere classified, initial encounter History of GI symptoms with certain foods do not appear to be c/w IgE-mediated reactions. These reactions are likely related to her autoimmune disease. Given this, myself and Dr. Gordon discussed with patient at length that empirical food testing is not recommended due to possibility of false-positives. Patient is still wanting skin testing to almond and peanut if insurance is paying for it. She does report oral symptoms with almond ingestion. Discussed Oral Allergy Syndrome with patient. -Skin testing unable to be completed today as reaction occurred 2 weeks ago, recommend skin testing 6-8 weeks after. -Discussed aeroallergen skin testing to determine atopy status. Patient is considering. Discussed with patient her insurance allows up to 75 prick tests. We could do aeroallegen skin testing in addition to peanut and almond at next visit. She verbalized understanding. She is considering aeroallergen skin testing. Dysphagia, unspecified Abdullahi reports a hisory of dysphagia with episodes of food sticking, does not correlate sticking with any specific foods. She believes this is related to her thyroid as she reports worsening symptoms when thyroid lab values are elevated. She reports a normal EGD 5 years ago, does not know name of GI specialist. Does not believe biopsy was done at that time. -Consider determining atopy status as stated above, though patient denies all upper airway symptoms and reports negative testing at Dr. Rodrigues's office approximately 5 years ago. Patient is considering aeroallergen skin testing. -Consider GI referral per PCP for repeat EGD with biopsy Elevated blood-pressure read ing, without diagnosis of hypertension BP elevated today without symptoms of urgency or emergency. Continue serial checks and follow-up with PCP Next Appt Details Follow Up: 4 Weeks, Reason: Evaluation and Management,Skin Testing: aeroallergens,Skin Testing: foods Progress Notes * EMELYN TenOB:1970 ([age] yo M)Acc No.[id number]:10/02/2023 Progress Notes Patient: Abdullahi CHAIREZ Provider: NAEL Yo :1970 A ge:53 Y S ex:Male Date:10/02/2023 Address:[address] [place], [place] [id number] Subjective: * Chief Complaints: * C oncerns for food allergies to multiple foods for occasional throat itching and diarrhea.Historical dysphagia with episodes of food sticking - reports normal EGD approximately 5 years ago. * HPI: * Introduction: I had the pleasure of seeing Michela Ruano, a 53 year old WM with a history of Clarke's thyroid disease presents today for food allergy evaluation. She is alone for today's visit. Abdullahi reports on 09/17/23 she ate a handful of Planter's peanuts at 5:30AM prior to progesterone suppository with coconut oil. Within a couple of minutes, started coughing and throat felt like a cotton or feather stuck in throat and had a fuzzy feeling . Within 1 hour had diarrhea and abdominal bloating. Symptoms resolved by mid-morning without intervention. She is concerned she is allergic to peanuts and coconuts given prometrium is made with peanut oil. Of note, patient has been notice bloating and diarrhea that has progressively worsened. Stopped taking prometrium suppository at that time and started compounded progesterone with resolution of abdominal symptoms. Since then, she has avoided all forms of peanuts and tree nuts. She does not have an AIE and is not inteersted in one until after skin testing.Prior to reaction, patient reported diarrhea after peanut ingestion. Assumed it was intolerance as she has several intolerances due to autoimmune disease. She avoids eggs because of diarrhea and avoids shellfish as she had diarrhea x 1 after crab leg consumption. She reports almonds make her throat itch at times. She states shewants to be tested for peanut, almond, coconut, shellfish and egg. Michela watts reports a hisory of dysphagia with episodes of food sticking, does not correlate sticking with any foods. She believes this is related to her thyroid as she reports worsening symptoms when thyroid lab values are elevated. She reports a normal EGD 5 years ago, does not know name of GI specialist. Does not believe biopsy was done at that time. She reports aeroallergen and food testing several years ago with Dr. Rodrigues, all negative . She denies upper ariway symptoms, frequent infections, PNA diagnosis, inhaler usage, asthma diagnosis.She denies a history of physician-diagnosed allergic rhinitis, recurrent sinusitis or otitis media, recurrent pneumonia, asthma/RAD, eczema, food allergies, urticaria/angioedema, medication allergies, contact dermatitis, latex allergy, eosinophilic esophagitis or stinging insect hypersensitivity. Today, she reports no fevers, chills, night sweats or other constitutional symptoms . * Allergic Rhinoconjunctivitis: Allergic rhinitis D o you have or suspect you have allergic rhinitis (itchy eyes, sneezing, congestion or runny nose triggered by allergies)? N o Sinuses H ave you ever undergone sinus surgery? N o * Asthma: Cough D o you have a recurrent cough? N o Wheezing D o you take an inhaled, rescue bronchodilator medication? N o H ave you taken oral steroids (Prednisone or Medrol) in the past? N o Physical Performance H ow many blocks can you walk? (Enter 99 for unlimited) 9 8 H ow many flights of stairs can you climb without stopping? (Enter 99 for unlimited) 1 5 * Infections: Vaccination History H ave you ever had a flu shot? N o H ave you ever had a pneumococcal vaccine ([id number]-Emrdwzjbe)? N o H ave you ever had a tetanus vaccine (SGqt-Wcfz-Cd)? N o Ear Infections D o you have frequent ear infections? N o Sinusitis (Sinus infections) D o you have frequent episodes of sinusitis??No Sinus Symptoms and Surgery D o you have chronic or recurrent sinus symptoms? N o D o you have sinus pain? N o D o you have a loss of sense of taste? N o H ave you ever had a sinus CT or X-Ray? N o H ave your ever undergone sinus surgery? N o Bronchitis History D o you get frequent bronchitis? N o Pneumonia History H ave you ever had pneumonia or recurrent pneumonia? N o Skin and Other Infections D o you get frequent skin infections (cellulitis)? N o D o you get any other frequent infections??No * Other Rash and Contact Dermatitis: Other rashes and contact dermatitis H ave you ever had any other form of rash or contact dermatitis? N o * Atopic dermatitis: Atopic dermatitis - Eczema D o you have chronic or recurrent atopic dermatitis or eczema? N o * Urticaria: Urticaria (hives) D o you have recurrent hives? N o * Medication allergy: Medication Allergy D o you feel you are allergic to any medications? Y es W hat type of medication? a ntibiotic (Penicillin or Amoxicillin or other antimicrobial),analgesic (NSAID or Ibuprofen or Codeine or Morphine or other analgesic) H ow was the medication administered? o ral W hat was the medication administered for??pain W hat symptom(s) did the medication cause??shortness of breath,wheezing I f antibiotic, what type: p enicillin-derivative,sulfa I f analgesic, what type: o pioid W hat symptom(s) did the medication cause??shortness of breath,wheezing H ave you been evaluated by an coppersmith apprentice previously for possible drug allergy? N o * Stinging Insects: Insect Reaction(s) H ave you ever experienced a stinging insect reaction? N o * Prior Evaluations and Treatments: Prior evaluations and treatments H ave you been evaluated by another physician for allergic rhinitis, cough, wheezing, asthma, urticaria, angioedema, atopic dermatitis or eczema??No H ave you undergone testing for any aforementioned conditions or symptoms? Y es P erformed by: A lllauriist Orlando ungere of test: s kin test - airborne allergens,skin testing - foods H ow long ago: 5 -10 years ago H ave you ever been on allergy immunotherapy??No H ave you ever passed out during a blood draw, shot or vaccination? N o Last dose of antihistamine: D o you take any other psychiatric medication??No * Food allergy: Food Allergy D o you currently have or have you ever had any proven or suspected food allergies? Y es A pproximately, when did symptoms start? 0 08/28/2022 W hen was your last reaction? 0 08/28/2023 W hat food(s)? e gg,milk,peanut,almond W hat symptoms do you experience when foods are ingested? t ingling mouth or tongue or lips,nausea,bloating,diarrhea H ow quickly do symptoms come on after food ingestion? a few minutes H ave you ever been hospitalized or treated urgently for symptoms of a severe allergic reaction (anaphylaxis)? N o D o you carry self-injectable epinephrine for your prior reaction(s)? N o H ave you previously seen an coppersmith apprentice for evaluation of possible food allergy? Y es W as testing performed? Y es W hat type of testing was performed? s kin testing D id testing verify food allergy? N o * Eosinophilic GI: Eosinophilic Gastrointestinal Disease D o you have difficulty swallowing foods or have you previously needed to have your esophagus dilated for food impaction or have 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? Y es W hat part of the GI tract is involved? e sophagus W hat symptoms have been caused by your eosinophilic GI disease? d ifficulty swallowing solids W hen did symptoms start? p ast 12 months W as endoscopy performed to verify the diagnosis? N o H ave you ever been evaluated by an coppersmith apprentice for possible allergies related to your eosinophilic disease? N o * Angioedema: Angioedema (swelling) D o you have recurrent swelling (angioedema)??No * ROS: A LLERGY: Positive p er the HPI and history, otherwise unremarkable.? S PECIAL SENSES: Positve for n one. c ataracts N o. g laucoma?No. l oss of hearing N o. i tching in ears N o. r inging in ears N o.?loss of balance N o. l oss of smell N o. d ry eyes N o. e xcessive tearing No. i tching eyes N o. l oss of taste N o. c onjunctivitis N o. e ar infections N o. C ONSTITUTIONAL: Positive for n one. E NT: Positive p er the HPI and history, otherwise unremarkable.? R ESPIRATORY: shortness of breath N o. c hest pain N o. c hest congestion N o. c ough N o. P ositive p er the HPI and history, otherwise unremakable. O PHTHALMOLOGY: diminished vision N o. e ye irritation N o. d rainage from eyes N o. b lurring of vision N o. s easonal eye sx N o. P ositive for p er the HPI and history, otherwise unremarkable. i tching N o. s ensitivity to light N o. d ischarge N o. w atering N o. s welling of the eyelids N o. r edness N o. E NDOCRINOLOGY: Positive for n one. C ARDIOLOGY: Positive for n one. G ASTROENTEROLOGY: dysphagia Y es. a bdominal pain N o. n ausea?No. v omiting N o. c onstipation N o. d iarrhea N o. b lood in stool?No. i ndigestion N o. h emorrhoids N o. P ositive for n one. U ROLOGY: difficulty urinating N o. b lood in urine N o. u rinary incontinence N o. r ecurrent UTI N o. P ositive for n one. ? D ERMATOLOGY: Positive for p er the HPI and history, otherwise unremakable. N EUROLOGY: headache N o. t ingling numbness N o. s eizures?No. i nsomnia Y es. m sintia loss N o. d izziness N o. g ait abnormality N o. P ositive for n one. H EMATOLOGY/LYMPH: Positive for n one. M USCULOSKELETAL: joint swelling N o. j oint pain Y es. l eg cramps N o. j oint stiffness Y es. s ciatica N o. o steoporosis N o. f racture N o. c arpal tunnel Y es. g out N o. P ositive for n one. ? P SYCHOLOGY: high stress level N o. d epression N o. s leep disturbances Y es. s uicidal ideation N o. e ating disorder N o. m ental or physical abuse N o. a nxiety N o. P ositive for n one. F EMALE REPRODUCTIVE: heavy periods N o. h ot flashes N o. a bnormal vaginal discharge N o. s exually active Y es. i nfertility N o. f requent yeat infections N o. p elvic pain N o. b reast pain N o. n ipple discharge?No. A re you planning on a future pregancy? N o. A ll other review of systems per the HPI and history, otherwise unremarkable. * Medical History: * Surgical History: T onsillectomy 1984C-sections 1991-2003Knee chondroplasty 2016Breast surgery lump breast implants 03/17 * Hospitalization/Major Diagno stic Procedure: beatriz pruitt [id number] * Family History: F ather: , No. M other: , No. P aternal Grand Father: No. P aternal Grand Mother: No. M aternal Grand Father: No. M aternal Grand Mother: No. S iblings: Yes, Thyroid cancer. Beatriz annen: Yes. 2 brother(s) , 4 sister(s) - healthy. . * Social History: M arital Status What is your marital status? m arried A lcohol Screening Do you ever drink alcoholic beverages? Y es Number of drinks per occasion: 5 Frequency? M jesse wong Have you ever smoked tobacco: f ormer smoker How old were you when you started smoking? 1 6 How old were you when you quit smoking? 2 7 How many cigarettes a day did you smoke? 3 packs Are you a : f ormer smoker R ecreational drug use Have you ever used recreational drugs? N o S marvin Smart Form Are you a: f ormer smoker D etails on consumption of certain products? Do you regularly consume products with aspartame; Equal or NutraSweet? N o Do you regularly consume products with artificial coloring??Yes Have you ever noticed worsening of your rash with these food items? N o E xercise What kind(s) of exercise do you perform regularly? w alking,biking,weight training,cardio How often do you perform this exercise? d aily A re any of the following personal care products containing fragrance, dye or preservatives used regularly? Shampoo: Y es Conditioner: Y es Soap: Y es Laundry Detergent: N o Fabric Softener: N o Deodorant: Y es Perfume, cologne, after shave: N o Air freshners or other scented products: N o Hair coloring dyes or rinses: Y es O ccupation Are you currenly employed? N o Have you had any job with high exposure to fumes, chemicals, dust or other noxious substances? N o Are you currently a student? N o E nvironmental History Living environment: p rivate home Where is the home located? s [place] Age of home: 2 6 How long have you lived there? 5 years or more How many people live in the home? 5 H ome description Basement: Y es Any water damage in basement? N o Smokers in the home? N o Smokers outside the home? N o Air Conditioning? Y es Central Air? Y es Forced air heating? Y es Gas or electric? g as Fireplace? N o Wood burning stove? N o Do you vacuum the home? Y es Air purification systems? N o Pillow and mattress dust-proof encasings? Y es Do you use a humidifier? N o Do you own any pets? Y es What kind(s)? (click all that apply) d og Where do your pets sleep? o ther room in home Fabric softeners used? Y es Plants in the home? N o Is there carpeting in your bedroom? Y es Age of carpet? 2 6 Do you have [id number] carpeting? N o What is the age of your mattress (years)? 1 What material(s) are used to manufacture your bedding and pillow? s ynthetic What is the age of your pillow (years)? 1 What material are your bedding items made of? n atural fiber (e.g. cotton) Do you sleep with quilts or blankets or a duvet? Y es What material? n atural fiber (e.g. cotton) How many dogs? 1 * Medications: T akingVitamin D3 125 mcg capsule 1 tab(s) orally once a day estradiol 0.1 mg/24 hours twice weekly film, extended release 1 tab(s) orally once a day testosterone 2 mg/24 hr film, extended release as directed 6 mg total intramuscularly weekly liothyronine 10 mcg/mL solution 40 ml orally four times a day Tirosint 125 mcg (0.125 mg) capsule TAKE ONE CAPSULE BY MOUTH DAILY progesterone 200 mg capsule as directed twice daily Medication List reviewed and reconciled with the patientTaking Vitamin D3 125 mcg capsule 1 tab(s) orally once a day Taking estradiol 0.1 mg/24 hours twice weekly film, extended release 1 tab(s) orally once a day Taking testosterone 2 mg/24 hr film, extended release as directed 6 mg total intramuscularly weekly Taking liothyronine 10 mcg/mL solution 40 ml orally four times a day Taking Tirosint 125 mcg (0.125 mg) capsule TAKE ONE CAPSULE BY MOUTH DAILY Taking progesterone 200 mg capsule as directed twice daily Medication List reviewed and reconciled with the patient * Allergies: t etracycline topical: anaphylaxissulfacetamide sodium topical: rash - Allergymorphine: rashHYDROcodone: vomitingAmbien: other reaction - Side Effectsno[Allergies Verified] Objective: * Vitals: B P:146/91mm Hg, HR:70/min, RR:18/min, Pulse Oximetry:98%, Ht: 66 in, Wt: 175 lbs, BMI:28.24Index. * Examination: G eneral examination: General appearance: p leasant, well-developed, well-nourished. HEENT: p upils equal, round, and reactive to light and accommodation, conjunctiva are injected bilaterally. Breasts : n ot performed. Heart: R RR, S1-S2, no murmurs, no rubs, no gallops. Lungs: c lear to auscultation and percussion in all lung payne, no wheezes or crackles. Neurologic exam: u nremarkable. Skin: n ormal, no rash, dermatographism, urticaria, angioedema. Back: n ormal. Extremities: n ormal ROM, no clubbing, no cyanosis, no edema. Genitalia: n ot performed. Influenza Vaccine not administered R huong: P atient Reason Assessment: * Assessment: 1. O ther adverse food reactions, not elsewhere classified, initial encounter - T78.1XXA (Primary) 2 . D ermatitis due to ingested food - L27.2 3 . D ysphagia, unspecified - R13.10 4 . E levated blood-pressure reading, without diagnosis of hypertension - R03.0 Plan: * Treatment: 2. D ermatitis due to ingested food Notes: Myself and Dr. Gordon discussed our low suspicion for IgE-mediated food allergy to peanuts at length with patient. Patient stated multiple times throughout the visit she came for skin testing to peanut despite recommendations. Discussed skin testing 6-8 weeks after reaction. - I offered to order AIE, but patient refused stating I will only get one if the skin testing determines I'm allergic -I encouraged [facility] for further episodes, but patient refused stating I don't take any of that medication -Consider aeroallergen skin testing as stated above. -Follow-up in 4-6 weeks for skin testing. Instructed to hold all antihistamines 7-10 days prior to skin testing. 3. D ysphagia, unspecified Notes:Abdullahi reports a hisory of dysphagia with episodes of food sticking, does not correlate sticking with any specific foods. She believes this is related to her thyroid as she reports worsening symptoms when thyroid lab values are elevated. She reports a normal EGD 5 years ago, does not know name of GI specialist. Does not believe biopsy was done at that time. -Consider determining atopy status as stated above, though patient denies all upper airway symptoms and reports negative testing at Dr. Rodrigues's office approximately 5 years ago. Patient is considering aeroallergen skin testing. -Consider GI referral per PCP for repeat EGD with biopsy 4. E levated blood-pressure reading, without diagnosis of hypertension Notes: BP elevated today without symptoms of urgency or emergency. Continue serial checks and follow-up with PCP * Procedure Codes: G 8427 DOC MEDS VERIFIED W/PT OR [id number] FLU IMM NO ORD/ADMIN DOC BLANE * Preventive Medicine: Counseling: D iet C ontinue food avoidance: peanuts, almonds, coconut. E xercise C ontinue activity as usual. M edication instruction: H old all medications with antihistamine properties at least 1 week prior to upcoming skin testing at next visit. E ducation: G ENERAL EDUCATION: Our staff spent an additional 30 minutes in direct contact with the patient educating them on their current diagnoses and proper treatment and prevention of symptoms and the proper use of medications. P atient education material sent to portal? Y es B P Management: FIRST HYPERTENSIVE BP READING FOLLOW-UP PLAN: F ollow-up 1 month REFERRAL TO ALTERNATIVE / PRIMARY CARE PROVIDER: Michela coles to general practitioner * Follow Up: 4 Weeks (Reason: Evaluation and Management,Skin Testing: aeroallergens,Skin Testing: foods) * Billing Information: * Visit Code: 33237 Office Visit, New Pt., Level 3. Modifiers: 25 * Procedure Codes: G8427 DOC MEDS VERIFIED W/PT OR RE. G8483 FLU IMM NO ORD/ADMIN DOC BLANE. * NEL PROCESS PLANT OPERATOR Electronically co-signed by Gregorio Gordon MD, FAAAAI on 10/13/2023 at 02:17 PM CHANNEL PROCESS PLANT OPERATOR Sign off status: Completed true * Provider: NAEL Yo Date: 0 10/02/2023 Generated for Johana ng/Haritha/eTransmitting on: 0 11/26/2024 02:43 PM CDT History and Physical Notes * HPI (History of Present Illness) Category Sub-Category Detail Notes Category Not es *Introduction I had the pleasure of seeing Abdullahi Ruano, a 53 year old WM with a history of Clarke's thyroid disease presents today for food allergy evaluation. She is alone for today's visit. Abdullahi reports on 09/17/23 she ate a handful of Planter's peanuts at 5:30AM prior to progesterone suppository with coconut oil. Within a couple of minutes, started coughing and throat felt like a cotton or feather stuck in throat and had a fuzzy feeling . Within 1 hour had diarrhea and abdominal bloating. Symptoms resolved by mid-morning without intervention. She is concerned she is allergic to peanuts and coconuts given prometrium is made with peanut oil. Of note, patient has been notice bloating and diarrhea that has progressively worsened. Stopped taking prometrium suppository at that time and started compounded progesterone with resolution of abdominal symptoms. Since then, she has avoided all forms of peanuts and tree nuts. She does not have an AIE and is not inteersted in one until after skin testing. Prior to reaction, patient reported diarrhea after peanut ingestion. Assumed it was intolerance as she has several intolerances due to autoimmune disease. She avoids eggs because of diarrhea and avoids shellfish as she had diarrhea x 1 after crab leg consumption. She reports almonds make her throat itch at times. She states she wants to be tested for peanut, almond, coconut, shellfish and egg. Abdullahi reports a hisory of dysphagia with episodes of food sticking, does not correlate sticking with any foods. She believes this is related to her thyroid as she reports worsening symptoms when thyroid lab values are elevated. She reports a normal EGD 5 years ago, does not know name of GI specialist. Does not believe biopsy was done at that time. She reports aeroallergen and food testing several years ago with Dr. Rodrigues, all negative . She denies upper ariway symptoms, frequent infections, PNA diagnosis, inhaler usage, asthma diagnosis. She denies a history of physician-diagnosed allergic rhinitis, recurrent sinusitis or otitis media, recurrent pneumonia, asthma/RAD, eczema, food allergies, urticaria/angioedema, medication allergies, contact dermatitis, latex allergy, eosinophilic esophagitis or stinging insect hypersensitivity. Today, she reports no fevers, chills, night sweats or other constitutional symptoms *Allergic Rhinoconjunctivitis Sinuses Have you ever undergone sinus surgery?: No Allergic rhinitis Do you have or suspe ct you have allergic rhinitis (itchy eyes, sneezing, congestion or runny nose triggered by allergies)?: No *Asthma Cough Do you have a recurrent cough?: No Wheezing Do you take an inhaled, rescue b ronchodilator medication?: No Have you taken oral steroids (Prednisone or Medrol) in the past?: No Physical Performance How many blocks can you wal k? (Enter 99 for unlimited): 98 How many flights of stairs c an you climb without stopping? (Enter 99 for unlimited): 15 *Infections Vaccination History Have you ever had a flu sh ot?: No Have you ever had a pneumococcal vaccine (SVB-Qybjrea-Pomsugtkb)?: No Have you ever had a tetanus vaccine (DTa p-Tdap-Td)?: No Ear Infections Do you have frequent ear infecti ons?: No Sinusitis (Sinus infections) Do you have frequen t episodes of sinusitis?: No Sinus Symptoms and Surgery Do you have chronic o r recurrent sinus symptoms?: No Do you have sinus pain?: No Do you have a loss of sense of taste?: N o Have you ever had a sinus CT or X-Ray?: No Have your ever undergone sinus surgery?: No Bronchitis History Do you get frequent bronchiti s?: No Pneumonia History Have you ever had pneumonia or recurrent pneumonia?: No Skin and Other Infections Do you get frequent sk in infections (cellulitis)?: No Do you get any other frequent infections ?: No *Other Rash and Contact Dermatitis Other rashes and contact dermatitis Have you ever had any other form of rash or contact dermatitis?: No *Atopic dermatitis Atopic dermatitis - Eczema Do you have chronic or recurrent atopic dermatitis or eczema?: No *Urticaria Urticaria (hives) Do you have re current hives?: No *Medication allergy Medication Allergy Do you fe el you are allergic to any medications? : Yes What type of medication?: antibiotic (Penicillin or Amoxicillin or other antimicrobial),analgesic (NSAID or Ibuprofen or Codeine or Morphine or other analgesic) How was the medication administered?: oral What was the medication administered for?: pain What symptom(s) did the medication cause?: shortness of breath,wheezing If antibiotic, what type:: penicillin-de rivative,sulfa If analgesic, what type:: opioid What symptom(s) did the medication cause ?: shortness of breath,wheezing Have you been evaluated by a n coppersmith apprentice previously for possible drug allergy?: No *Stinging Insects Insect Reaction(s) Have you ev er experienced a stinging insect reaction? : No *Prior Evaluations and Treatments Prior evaluations and treatments Have you been evaluated by another physician for allergic rhinitis, cough, wheezing, asthma, urticaria, angioedema, atopic dermatitis or eczema?: No Have you undergone testing for any afore mentioned conditions or symptoms?: Yes Performed by:: Cafeteria Counter Attendant Type of test:: skin test - airborne allergens,skin testing - foods How long ago:: 5-10 years ago Have you ever been on allergy immunother apy?: No Have you ever passed out during a blood draw, shot or vaccination?: No Last dose of antihistamine: Do you take any othe r psychiatric medication?: No *Food allergy Food Allergy Do you currently have or have you ever had any proven or suspected food allergies?: Yes Approximately, when did symptoms start?: 08/28/2022 When was your last reaction?: 08/28/2023 What food(s)?: egg,milk,peanut,almond What symptoms do you experience when foods are ingested?: tingling mouth or tongue or lips,nausea,bloating,diarrhea How quickly do symptoms come on after food ingestion?: a few minutes Have you ever been hospitalized or treated urgently for symptoms of a severe allergic reaction (anaphylaxis)?: No Do you carry self-injectable epinephrine for your prior reaction(s)?: No Have you previously seen an coppersmith apprentice for evaluation of possible food allergy?: Yes Was testing performed?: Yes What type of testing was performed?: skin testing Did testing verify food allergy?: No *Eosinophilic GI Eosinophilic Gastroi ntestinal Disease Do you have difficulty swallowing foods or have you previously needed to have your esophagus dilated for food impaction or have 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?: Yes What part of the GI tract is involved?: esophagus What symptoms have been caused by your eosinophilic GI disease?: difficulty swallowing solids When did symptoms start?: past 12 months Was endoscopy performed to verify the diagnosis?: No Have you ever been evaluated by an coppersmith apprentice for possible allergies related to your eosinophilic disease?: No *Angioedema Angioedema (swelling) Do you hav e recurrent swelling (angioedema)?: No Examination Category Sub-Category Detail Notes Category Not es General examination HEENT: pupils equal , round, and reactive to light and accommodation, conjunctiva are injected bilaterally Heart: RRR, S1-S2, no murmu rs, no rubs, no gallops Lungs: clear to auscultatio n and percussion in all lung payne, no wheezes or crackles Extremities: normal ROM, no clubb ing, no cyanosis, no edema General appearance: pleasant, well-devel oped, well-nourished Skin: normal, no rash, vivian matographism, urticaria, angioedema Neurologic exam: unremarkable Breasts : not performed Back: normal Genitalia: not performed Influenza Vaccine not administered Reason:: Radha ent Reason
--- OUTSIDE RECORDS SUMMARY | 2024-11-26 14:44 | XMS_ITS ---
Author Organization [facility] Address [address] [place] [address] Care Team Providers Care Cottonseed Meat Presser Name Role Phone Nahomi Fajardo Unavailable [phone] [facility], Provider Unavailable Unavailab le Allergies Allergen (clinical drug ingredient) Drug/Non Drug Allergy documented on EMR Reaction Allergy Type Onset Date Status tetracycline TETRACYCLINE TOPICAL (uncoded) anaphylaxis Allergy Active zolpidem Ambien other reaction Drug Allergy Ac tive sulfacetamide Sulfacetamide Sodium (Acne) rash Drug Allergy Active hydrocodone HYDROcodone vomiting Drug Allergy Act jerry morphine Morphine rash Drug Allergy Active [facility] Encounter Medications Medication SIG (Take, Route, Frequency, Duration) Notes Start Date End Date Status Liothyronine Sodium 10 MCG/ML 40 ML ORALLY FOUR TIMES A DAY *Please review and pick correct strength-formulat ion from [employer]an options. If intended option is not shown, discontinue and re-order from Quick Search* Active Tirosint 125 MCG (0.125 MG) TAKE ONE CAPSULE BY MOUTH DAILY for 90 DAYS *Please review and pick correct strength-formulat ion from [employer] options. If intended option is not shown, discontinue and re-order from Quick Search* Active Progesterone 200 MG as directed twice daily for 90 days Active Estradiol 0.1 MG/24 HOURS TWICE WEEKLY 1 TAB(S) ORALLY ONCE A DAY *Please review and pick correct strength-formulat ion from [employer] options. If intended option is not shown, discontinue and re-order from Quick Search* Active Testosterone 2 MG/24 HR DIRECTED 6 MG TOTAL INTRAMUSCULARLY WEEKLY *Please review and pick correct strength-formulat ion from [employer] options. If intended option is not shown, discontinue and re-order from Quick Search* Active Lysine 1000 MG 1 tab(s) orally once a day Active Vitamin D3 125 MCG 1 TAB(S) ORALLY ONCE A DAY *Please review and pick correct strength-formulat ion from [employer] options. If intended option is not shown, discontinue and re-order from Quick Search* Active Encounters Encounter Location Date Provider Diagnosis [address] [place] [address] 02/08/2024 Provider [employer]Migration Plan Of Treatment No Information Progress Notes * INGRIDLAVELL TenOB:1970 ([age] yo M)Acc No.[id number]:02/08/2024 Patient: Abdullahi CHAIREZ Provider: Sarabjit Barnhart :1970 A ge:53 Y S ex:Male Date:02/08/2024 Address:[address] [place] [address] [place], [id number] Subjective: * Chief Complaints: * 1 . Multum To Medis[employer] Conversion Encounter. * Medical History: * Medications: T aking Lysine 1000 MG Tablet 1 tab(s) orally once a day , Taking Vitamin D3 125 MCG CAPSULE 1 TAB(S) ORALLY ONCE A DAY , Notes to Pharmacist: *Please review and pick correct strength-formulation from [employer] options. If intended option is not shown, discontinue and re-order from Quick Search*, Taking Estradiol 0.1 MG/24 HOURS TWICE WEEKLY FILM, EXTENDED RELEASE 1 TAB(S) ORALLY ONCE A DAY , Notes to Pharmacist: *Please review and pick correct strength-formulation from [employer] options. If intended option is not shown, discontinue and re-order from Quick Search*, Taking Testosterone 2 MG/24 HR FILM, EXTENDED RELEASE DIRECTED 6 MG TOTAL INTRAMUSCULARLY WEEKLY , Notes to Pharmacist: *Please review and pick correct strength- formulation from [employer] options. If intended option is not shown, discontinue and re-order from Quick Search*, Taking Liothyronine Sodium 10 MCG/ML SOLUTION 40 ML ORALLY FOUR TIMES A DAY , Notes to Pharmacist: *Please review and pick correct strength- formulation from [employer] options. If intended option is not shown, discontinue and re-order from Quick Search*, Taking Tirosint 125 MCG (0.125 MG) CAPSULE TAKE ONE CAPSULE BY MOUTH DAILY , Notes to Pharmacist: *Please review and pick correct strength- formulation from [employer] options. If intended option is not shown, discontinue and re-order from Quick Search*, Taking Progesterone 200 MG Capsule as directed twice daily * Allergies: T ETRACYCLINE TOPICAL: anaphylaxis, Sulfacetamide Sodium (Acne): rash - Allergy, Morphine: rash, HYDROcodone: vomiting, Ambien: other reaction - Side Effects. Objective: * Vitals: Assessment: Plan: * Treatment: * Billing Information: * Visit Code: * Procedure Codes: * Electronic signature of Leti GATES-Migration on 11/26/2024 at 02:43 PM CDT Sign off status: Pending * Provider: Sarabjit melgar Migration Date: 02/08/2024 Generated for Johana garcía/Haritha/Doretha on: 11/26/2024 02:43 PM CDT
--- OUTSIDE RECORDS SUMMARY | 2024-11-26 14:44 | XMS_ITS | Clinical Summary ---
Author Organization [facility] Address [address], [address] [address] Phone Care Team Providers Care Belt Lacer Name Role Phone Juni Hollingsworth MD Primary Care Provider [phone] Allergies Active Allergy Reactions Criticality Noted Date Comments Zolpidem Hallucinations 09/11/2017 Hydrocodone Nausea 09/25/2017 Morphine Other (see Comments) 09/11/2017 Headache and rash Tetracycline Anaphylaxis 09/11/2017 Medications MAGNESIUM PO Take by mouth daily. Active Cholecalciferol (VITAMIN D PO) Take by mouth daily. Active DANDELION PO Take by mouth daily. Active otherIndications: ZIM PLUS,estrogen cream, testosterone injection, bio-identical hormone replacement by Other route. Active metFORMIN (GLUCOPHAGE) 500 MG Tablet Take 500 mg by mouth 2 times daily (with meals). Active Progesterone Micronized 200 MG Capsule Take 200 mg by mouth daily. Hazardous: Medication requires special safe handling and disposal. Active ARMOUR THYROID PO Take by mouth daily. Active omeprazole (PRILOSEC) 20 MG CAPSULE DELAYED RELEASE Take 1 Cap by mouth daily. 30 Cap 3 8 Active hydrocortisone (ANUSOL-HC) 2.5 % Cream Apply daily. Apply to rectum as directed. 1 Tube 8 Active Family History Medical History Relation Name Comments Cancer Brother thyroid Lung Cancer Mother lung Relation Name Status Comments Brother Father Mother Social History Tobacco Use Types Packs/Day Years Used Date Smoking Tobacco: Former Cigarettes 3 4 Smokeless Tobacco: Never Alcohol Use Standard Drinks/Week Comments No 0 (1 standard drink = 0.6 oz pur e alcohol) Comments Unknown Sex and Gender Information Value Date Recorded Sex Assigned at Not on file Legal Sex Female 11:10 PM CDT Gender Identity Not on file Sexual Orientation Not on file Last Filed Vital Signs Vital Sign Reading Time Taken Comments Blood Pressure 146/89 09/25/2017 10:39 AM RETORT UNLOADER Pulse 79 09/25/2017 9:12 AM RETORT UNLOADER Temperature 36 C (96.8 F) 09/25/2017 10:39 AM RETORT UNLOADER Respiratory Rate 16 09/25/2017 10:39 AM RETORT UNLOADER Oxygen Saturation 100% 09/25/2017 10:39 AM RETORT UNLOADER Inhaled Oxygen Concentration - - Weight 71.2 kg (157 lb) 09/11/2017 1:00 PM RETORT UNLOADER Height 170.2 cm (5' 7 ) 09/11/2017 1:00 PM RETORT UNLOADER Body Mass Index 24.59 09/11/2017 1:00 PM RETORT UNLOADER Plan of Treatment Health Maintenance Due Date Last Done Comments Hepatitis C Virus (HCV) Screening 1970 TdaP Immunization 1970 Hepatitis B Immunization (1 of 3 - 19+ 3-dose series) 02/22/1987 Cologuard 02/22/2018 Immunochemical Fecal Occult Blood 02/22/2018 Mammogram 02/22/2018 Pneumococcal Immunization (5 0+ years) (1 of 1 - PCV) 02/22/2018 Zoster Immunization (1 of 2) 02/22/2018 Influenza Immunization (#1) 2024 SARS-COV-2 Immunization ( - season) 2024 Colonoscopy 09/25/2027 09/25/2017, 04/13/2010, 04/13/2010 Colorectal Cancer Screening 09/25/2027 Respiratory Syncytial Virus (RSV) Immunization (Adult) (1 - 1-dose 75+ series) 02/22/2043 09/25/2017, 04/13/2010, 04/13/2010 Meningococcal Immunization (ACWY) Aged Out No longer eligible b ased on patient's age to complete this topic Pneumococcal Immunization Combined Aged Out No longer eligible b ased on patient's age to complete this topic Rotavirus Immunization Aged Out No lo nger eligible based on patient's age to complete this topic Procedures Procedure Name Priority Date/Time Associated Diagnosis Comments HM COLONOSCOPY Routine 04/13/2010 from Last 3 Months or Most Recently Relevant to Health Maintenance Results * COLONOSCOPY (04/13/2010) Narrative Nataly Salgado. - 04/13/2010 HIMS created in error Bello Skinner DO PROCEDURE/MINOR SURGICAL ORDERA BLES Edited Result - Final from Last 3 Months or Most Recently Relevant to Health Maintenance Insurance [facility] Care Teams Belt Lacer Relationship Specialty Start Date End Date Juni Hollingsworth MD [address] [place] [id number] PCP - General Family Medicine 09/25/17
--- OUTSIDE RECORDS SUMMARY | 2024-11-26 14:44 | XMS_ITS ---
Author Organization [facility] Address [address] [place] [address] Care Team Providers Care Prep Manager Name Role Phone Nahomi Fajardo Unavailable [phone] Allergies Allergen (clinical drug ingredient) Drug/Non Drug Allergy documented on EMR Reaction Allergy Type Onset Date Status zolpidem Ambien other reaction Drug Allergy Ac tive morphine morphine rash Drug Allergy Active sulfacetamide sulfacetamide sodium topical rash Drug Allergy Active tetracycline topical anaphylaxis Drug Allergy Active HYDROcodone vomiting Drug Allergy Activ e Results Component Value Reference Range Notes -F020 [place] Reviewed date:11/19/2023 07:58:14 AM Interpretation:Normal Performing Lab:[address] [id number], Phone - [phone], Director - Aileen Notes/Report: [id number] [place] <0.10 Class 0 kU/L -F036 [place] Reviewed date:11/19/2023 07:58:48 AM Interpretation:Normal Performing Lab:[address] [id number], Phone - [phone], Director - MDYaniquegendra Notes/Report: [id number] [place] <0.10 Class 0 kU/L -Respiratory Allergens w/Tot al IgE Area 8 Reviewed date:11/19/2023 07:56:43 AM Interpretation:Normal Performing Lab:[address] [id number], Phone - [phone], Director - MDChase Notes/Report: Class Description Levels of Specific IgE Class Description of Class ----- < 0.10 0 Negative 0.10 - 0.31 0/I Equivocal/Low 0.32 - 0.55 I Low 0.56 - 1.40 II Moderate 1.41 - 3.90 III High 3.91 - 19.00 IV Very High 19.01 - 100.00 V Very High >100.00 Very High Immunoglobulin E, Total 11 6-495 IU/mL Y323-UhD D pteronyssinus <0.10 Class 0 kU/L B451-ZoM D farinae <0.10 Class 0 kU/L G929-PmB Cat Dander <0.10 Class 0 kU/L L239-YjR Dog Dander <0.10 Class 0 kU/L N928-KoT Bermuda Grass <0.10 Class 0 kU/L U436-TzU Daniel Grass <0.10 Class 0 kU/L R222-CrQ Cockroach, Vietnamese <0.10 Class 0 kU/L S714-XhC Penicillium chrysogen <0.10 Class 0 kU /L V688-PcI Cladosporium herbarum <0.10 Class 0 kU /L U344-XrZ Aspergillus fumigatus <0.10 Class 0 kU /L H976-QsB Alternaria alternata <0.10 Class 0 kU/ L H314-XaI Maple/Liberty <0.10 Class 0 kU/L K403-ZnL Placer, Mountain <0.10 Class 0 kU/L Q102-JrG [place], White <0.10 Class 0 kU/L L125-VeO Elm, Chilean <0.10 Class 0 kU/L K505-XjO Maple Thunderbolt Bazine <0.10 Class 0 kU/L A056-MzS Braxton <0.10 Class 0 kU/L H147-ZjS Haven, White <0.10 Class 0 kU/L W810-WoO Kingston <0.10 Class 0 kU/L L165-DfD Pecan, Jefferson <0.10 Class 0 kU/L S699-SbZ White Continental <0.10 Class 0 kU/L E082-CaB Ragweed, Short <0.10 Class 0 kU/L O673-LaA Thistle, Ukrainian <0.10 Class 0 kU/L S141-DbX Pigweed, Common <0.10 Class 0 kU/L O607-DaO Rough Marshelder <0.10 Class 0 kU/L F291-XeM Mouse Urine <0.10 Class 0 kU/L -IgE Peanut w/Component Prof maddox Reviewed date:11/19/2023 07:58:31 AM Interpretation:Normal Performing Lab:[facility], [address] [place] [id number], Phone - [phone], Director - Aileen Notes/Report: A594-SoU Peanut <0.10 Class 0 kU/L REASON FOR VISIT Concerns for food allergies to multiple foods for occasional throat itching and diarrhea., Historical dysphagia with episodes of food sticking - reports normal EGD approximately 5 years ago. Medications Medication SIG (Take, Route, Frequency, Duration) Notes Start Date End Date Status LIOTHYRONINE 10 mcg/mL 40 ml orally four times a day Active PROGESTERONE 200 mg as directed twice da cinthya for 90 days Active TIROSINT 125 mcg (0.125 mg) TAKE ONE CAPSULE BY MOUTH DAILY for 90 days Active LYSINE 1000 mg 1 tab(s) orally once a day Active TESTOSTERONE 2 mg/24 hr as directed 6 mg total intramuscularly weekly Active VITAMIN D3 125 mcg 1 tab(s) orally once a day Active ESTRADIOL 0.1 mg/24 hours twice weekly 1 tab(s) orally once a day A ctive Social History Tobacco Use: Social History Observation Description Date Details (start date - stop date) Former Smoker NA - NA Smoking Smart Form: Question Answer Notes Are you a: former smoker Problems Problem Type SNOMED Code ICD Code Onset Dates Problem Status W/U Status Risk Notes Problem Allergic rhinitis caused by pollen (disorder) (83909135) Allergic rhinitis due to pollen (J30.1) Active confirmed Problem Allergic rhinitis (91163646) Other allergic rhinitis (J30.89) Active confirmed Vital Signs Blood pressure systolic 148 mm Hg 11/06/19 24 Blood pressure diastolic 89 mm Hg 024 Height 66 in 11/06/2023 Weight 169.6 lbs 11/06/2023 BMI 27.37 kg/m2 11/06/2023 Oximetry 100 % 11/06/2023 Encounters Encounter Location Date Provider Diagnosis [facility] [place] [address] [facility] [address] [place] [address] 11/06/2023 Nahomi Fajardo Allergic rhinitis du e to pollen J30.1 ; Other allergic rhinitis J30.89 ; Other adverse food reactions, not elsewhere classified, initial encounter T78.1XXA ; Dermatitis due to ingested food L27.2 ; Dysphagia, unspecified R13.10 and Elevated blood-pressure reading, without diagnosis of hypertension R03.0 Assessments Encounter Date Diagnosis (ICD Code) Assessment Notes Treatment Notes Treatment Clinical Notes Section Notes 11/06/2023 Allergic rhinitis due to pollen (ICD-10 - J30.1) Given the history and symptoms, skin testing was performed to common aeroallergens to determine atopic status. Abdullahi clearly suffers from atopic disease based upon our skin testing and clinical history. Discussed obtaining Intradermal testing versus ImmunoCaps. Patient is interested in ImmunoCaps to determine further aeroallergen sensitivity. She is not interested in SCIT at this time. - Will order ImmunoCaps for further workup. - Follow-up in 1 month for E&M 11/06/2023 Other allergic rhinitis (ICD-10 - J30.89) Follow allergen avoidance, meds and consider SCIT as an adjunctive treatment to current regimen. 11/06/2023 Other adverse food reactions, not elsewhere classified, initial encounter (ICD-10 - T78.1XXA) History of GI symptoms with certain foods do not appear to be c/w IgE-mediated reactions. At last visit recommended against skin testing due to possibility of false-positives. Patient is still wanting skin testing to almond and peanut today and laboratory work ordered for coconut as skin testing is unavailable for coconut. She does report oral symptoms with almond ingestion. 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 - Skin testing today was unequivocably negative to almond and peanut. - ImmunoCaps to be ordered for further evaluation. Consider OFC versus BAT testing based off results. 11/06/2023 Dermatitis due to ingested food (ICD-10 - L27.2) At last visit, myself and Dr. Gordon discussed our low suspicion for IgE-mediated food allergy to peanuts at length with patient. Patient stated multiple times throughout the visit she came for skin testing to peanut despite recommendations. - Previously offered to order AIE, but patient refused stating I will only get one if the skin testing determines I'm allergic - Previously encouraged [facility] for further episodes, but patient refused stating I don't take any of that medication - Skin testing negative to peanut and almond today. ImmunoCaps to be ordered for further evaluation. 11/06/2023 Dysphagia, unspecified (ICD-10 - R13.10) Abdullahi reports [...] biopsy was done at that time. -Consider GI referral per PCP for repeat EGD with biopsy 11/06/2023 Elevated blood-pressure reading, without diagnosis of hypertension (ICD-10 - R03.0) BP elevated today without symptoms of urgency or emergency. Continue serial checks and follow-up with PCP 11/06/2023 Other Plan Of Treatment Treatment Notes Assessment Notes Allergic rhinitis due to pollen Given the history and symptoms, skin testing was performed to common aeroallergens to determine atopic status. Abdullahi clearly suffers from atopic disease based upon our skin testing and clinical history. Discussed obtaining Intradermal testing versus ImmunoCaps. Patient is interested in ImmunoCaps to determine further aeroallergen sensitivity. She is not interested in SCIT at this time. - Will order ImmunoCaps for further workup. - Follow-up in 1 month for E&M Other allergic rhinitis Follow allergen avoidance, meds and consider SCIT as an adjunctive treatment to current regimen. Other adverse food reactions , not elsewhere classified, initial encounter History of GI symptoms with certain foods do not appear to be c/w IgE-mediated reactions. At last visit recommended against skin testing due to possibility of false-positives. Patient is still wanting skin testing to almond and peanut today and laboratory work ordered for coconut as skin testing is unavailable for coconut. She does report oral symptoms with almond ingestion. 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 - Skin testing today was unequivocably negative to almond and peanut. - ImmunoCaps to be ordered for further evaluation. Consider OFC versus BAT testing based off results. Dermatitis due to ingested food At last visit, myself and Dr. Gordon discussed our low suspicion for IgE-mediated food allergy to peanuts at length with patient. Patient stated multiple times throughout the visit she came for skin testing to peanut despite recommendations. - Previously offered to order AIE, but patient refused stating I will only get one if the skin testing determines I'm allergic - Previously encouraged [facility] for further episodes, but patient refused stating I don't take any of that medication - Skin testing negative to peanut and almond today. ImmunoCaps to be ordered for further evaluation. Dysphagia, unspecified Abdullahi reports a hisory of [...] biopsy was done at that time. -Consider GI referral per PCP for repeat EGD with biopsy Elevated blood-pressure read ing, without diagnosis of hypertension BP elevated today without symptoms of urgency or emergency. Continue serial checks and follow-up with PCP Next Appt Details Follow Up: 4 Weeks, Reason: Evaluation and Management,,Laboratory Review Procedure Notes * Category Sub-Category Detail Notes Skin Testing Epicutaneous skin testing was performed to common aeroallergens, revealing positive reactions to, haven (white), walnut (black), fescue (red/meadow), k. blue grass, orchard, redtop, rye, daniel, cocklebur, hemp (western water), lambs quarter, latham elder, Sarocladium strictum, positive and negative controls responded appropriately Number of Skin Tests Performed (including contro ls): Aeroallergen: Yes Epicutaneous: 72 Food: Yes Epicutaneous: 2 Total (Epicutaneous): 74 Progress Notes * Ten RUANOOB:1970 ([age] yo M)Acc No.[id number]:11/06/2023 Skin Testing Patient: Abdullahi CHAIREZ Provider: NAEL Yo :1970 A ge:53 Y S ex:Male Date:11/06/2023 Address:[facility] [address] [facility] Subjective: * Chief Complaints: * C oncerns for food allergies to multiple foods for occasional throat itching and diarrhea.Historical dysphagia with episodes of food sticking - reports normal EGD approximately 5 years ago. * HPI: * Introduction: I had the pleasure of seeing Michela Ruano, a 53 year old WM with a history of Clarke's thyroid disease presents today for aeraollergen and food skin testing. She is alone for today's visit. At last visit, Abdullahi reported on 09/17/23 she ate a handful of [...] not have an AIE and is not interested in one until after skin testing.Prior to [...] for peanut, almond, coconut, shellfish and egg. After last visit, concluded we would skin test to aeroallergens, peanut and almond. Also wanting laboratory workup for coconut. Michela watts reports a hisory of dysphagia [...] frequent infections, PNA diagnosis, inhaler usage, asthma diagnosis.Today, she reports no fevers, chills, night sweats or other constitutional symptoms . * ROS: A LLERGY: Positive p er [...] implants 03/17 * Hospitalization/Major Diagno stic Procedure: c hild [id number] * Family History: F ather: , No. M other: , No. P aternal Grand Father: No. P aternal Grand Mother: No. M aternal Grand Father: No. M aternal Grand Mother: No. S iblings: Yes, Thyroid cancer. C hildren: Yes. 2 brother(s) , 4 sister(s) - healthy. . * Social History: M arital Status What is your marital status? m arried A lcohol Screening Do you ever drink alcoholic beverages? Y es Number of drinks per occasion: 5 Frequency? M onthly S moking Have you ever smoked tobacco: f orjohanna smoker How old were you when you started smoking? 1 6 How old were you when you quit smoking? 2 7 How many cigarettes a day did you smoke? 3 packs Are you a : f ormer smoker S moking Smart Form Are you a: f ormer smoker R ecreational drug use Have you ever used recreational drugs? N o D etails on consumption of certain products? [...] of carpet? 2 6 Do you have [id number] carpeting? N o What is the age [...] How many dogs? 1 * Medications: T akinglysine 1000 mg tablet 1 tab(s) orally once a day Vitamin D3 125 mcg capsule 1 tab(s) [...] List reviewed and reconciled with the patientTaking lysine 1000 mg tablet 1 tab(s) orally once a day Taking Vitamin D3 125 mcg capsule 1 tab(s) [...] Side Effectsno[Allergies Verified] Objective: * Vitals: B P:148/89mm Hg, HR:81/min, Pulse Oximetry:100%, Ht: 66 in, Wt: 169.6 lbs, BMI:27.37Index. * Examination: G eneral examination: General appearance: [...] P atient Reason Assessment: * Assessment: 1. A llergic rhinitis due to pollen - J30.1 (Primary) 2 . O ther allergic rhinitis - J30.89 3 . O ther adverse food reactions, not elsewhere classified, initial encounter - T78.1XXA 4 . D ermatitis due to ingested food - L27.2 5 . D ysphagia, unspecified - R13.10?6. E levated blood-pressure reading, without diagnosis of hypertension - R03.0 Plan: * Treatment: 2. O ther allergic rhinitis Notes: Follow allergen avoidance, meds and consider SCIT as an adjunctive treatment to current regimen. 3. O ther adverse food reactions, not elsewhere classified, initial encounter L AB: -F020 [place] L AB: -F036 Coconut L AB: -IgE Peanut w/Component Profile Notes:History of GI symptoms with certain foods do not appear to be c/w IgE-mediatedreactions. At last visit recommended against skin testing dueto possibility of false-positives. Patient is still wanting skin testing to almond and peanut today and laboratory work ordered for coconut as skin testing is unavailable for coconut. She does report oral symptoms with almond ingestion. 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 - Skin testing today was unequivocably negative to almond and peanut. - ImmunoCaps to be ordered for further evaluation. Consider OFC versus BAT testing based off results. 4. D ermatitis due to ingested food Notes: At last visit, myself and Dr. Gordon discussed our low suspicion for IgE-mediated food allergy to peanuts at length with patient. Patient stated multiple times throughout the visit she came for skin testing to peanut despite recommendations. - Previously offered to order AIE, but patient refused stating I will only get one if the skin testing determines I'm allergic - Previously encouraged [facility] for further episodes, but patient refused stating I don't take any of that medication - Skin testing negative to peanut and almond today. ImmunoCaps to be ordered for further evaluation. 5. D ysphagia, unspecified Notes:Abdullahi reports a hisory [...] biopsy was done at that time. -Consider GI referral per PCP for repeat EGD with biopsy 6. E levated blood-pressure reading, without diagnosis of hypertension Notes: BP elevated today without symptoms of urgency or emergency. Continue serial checks and follow-up with PCP * Procedures: S kin Testing: Epicutaneous s kin testing was performed to common aeroallergens, revealing positive reactions to, haven (white), walnut (black), fescue (red/meadow), k. blue grass, orchard, redtop, rye, daniel, cocklebur, hemp (western water), lambs quarter, latham elder, Sarocladium strictum, positive and negative controls responded appropriately. Number of Skin Tests Performed (including controls): A eroallergen Y es E picutaneous 7 2 F ood Y es E picutaneous 2 T otal (Epicutaneous) 7 4 * Procedure Codes: G 8427 DOC MEDS VERIFIED W/PT OR [id number] FLU IMM NO ORD/ADMIN DOC [id number] PRICK TESTS, Units: 74.00 * Preventive Medicine: Counseling: D iet C ontinue food avoidance: peanuts, almonds, coconut. E xercise C ontinue activity as usual. E ducation: G ENERAL EDUCATION: Our staff spent an additional 30 minutes in direct contact with the patient educating them on their current diagnoses and proper treatment and prevention of symptoms and the proper use of medications. E ducation 2: A RC EDUCATION:, Our staff discussed the appropriate allergen avoidance measures and medication utilization including upper airway hygiene with nasal washes given the patient's clinical status and diagnoses, SCIT EDUCATION:, Discussed allergy immunotherapy including the relative risks, benefits and alternatives to this treatment as an adjunctive measure to current therapy, Allergy Immunotherapy: Risks: bleeding, infection, allergic reaction, anaphylaxis = severe allergic reaction that can cause ; Benefits: reduced need for medications, improved symptoms, disease modification. Alternatives: watch/wait, change medication regimen, improve allergy avoidance measures,. P atient education material sent to portal? Y es C are goal follow up plan BMI management provided Y es Above Normal BMI Follow-up D ietary management education, guidance, and counseling B P Management: FIRST HYPERTENSIVE BP READING FOLLOW-UP PLAN: F ollow-up 1 month REFERRAL TO ALTERNATIVE / PRIMARY CARE PROVIDER: Michela coles to general practitioner * Follow Up: 4 Weeks (Reason: Evaluation and Management,,Laboratory Review) * Billing Information: * Visit Code: 34747 Office Visit, Est Pt., Level 4. Modifiers: 25 * Procedure Codes: G8427 DOC MEDS VERIFIED W/PT OR RE. G8483 FLU IMM NO ORD/ADMIN DOC BLANE. 75345 PRICK TESTS. Units: 74.00. Images * Skin Testing * Electronically co-signed by Gregorio Gordon MD, FAAAAI on 02/17/2024 at 11:12 PM CDT Sign off status: Completed true * Provider: NAEL Yo Date: 0 11/06/2023 Generated for Johana ng/Haritha/eTransmitting on: 0 11/26/2024 02:44 PM CDT History and Physical Notes * HPI (History of Present Illness) Category Sub-Category Detail Notes Category Not es *Introduction I had the pleasure o f seeing Abdullahi Ruaon, a 53 year old WM with a history of Clarke's thyroid disease presents today for aeraollergen and food skin testing. She is alone for today's visit. At last visit, Abdullahi reported on 09/17/23 she ate a handful of [...] not have an AIE and is not interested in one until after skin testing. Prior [...] for peanut, almond, coconut, shellfish and egg. After last visit, concluded we would skin test to aeroallergens, peanut and almond. Also wanting laboratory workup for coconut. Abdullahi reports a hisory of dysphagia with [...] infections, PNA diagnosis, inhaler usage, asthma diagnosis. Today, she reports no fevers, chills, night sweats or other constitutional symptoms Examination Category Sub-Category Detail Notes Category Not es General examination HEENT: pupils equal , round, and reactive to light and accommodation, conjunctiva are injected bilaterally Heart: RRR, S1-S2, no murmu rs, no rubs, no gallops Lungs: clear to auscultatio n and percussion in all lung apyne, no wheezes or crackles Extremities: normal ROM, no clubb ing, no cyanosis, no edema General appearance: pleasant, well-devel oped, well-nourished Skin: normal, no rash, vivian matographism, urticaria, angioedema Neurologic exam: unremarkable Breasts : not performed Back: normal Genitalia: not performed Influenza Vaccine not administered Reason:: Radha ent Reason
[2024-11-26 15:20] LABS: Basophils Percent Auto 0.4 % (0.2-1.2); Eosinophils Absolute Auto 0.3 K/mm3 (0-0.3); Eosinophils Percent Auto 3.6 % (0-4.4); Hematocrit 44.7 % (37.0-47.0); Hemoglobin 14.4 g/dL (12.0-15.0); Immature Granulocyte Absolute 0.02 K/mm3 (0.00-0.031); Immature Granulocyte Percent A 0.3 % (0-0.5); Lymphocytes Absolute Auto 2.88 K/mm3 (0.9-3.2); Mean Corpuscular HGB Conc 32.2 g/dl (32-36); Mean Corpuscular Hemoglobin 27.7 pg (26-34); Mean Corpuscular Volume 86.1 fl (80-100); Mean Platelet Volume 10.2 fl (7.4-10.4); Monocytes Absolute Auto 0.7 K/mm3 (0.1-0.6); Monocytes Percent Auto 8.7 % (2.6-8.5); Neutrophils Absolute Auto 3.7 K/mm3 (1.3-6.7); Platelet Count Result 267 k/mm3 (150-375); Red Blood Count 5.19 M/mm3 (4.2-5.4); Red Cell Distribution Width 12.5 % (11.5-14.5); White Blood Count 7.6 K/mm3 (4.5-10.0)
[2024-11-26 15:29] LABS: Alanine Aminotransferase 50 U/L (6-35); Albumin Level 3.9 g/dL (3.5-5.1); Alkaline Phosphatase 86 U/L (38-126); Anion Gap 5 mmol/L (4-12); Aspartate Amino Transferase 33 U/L (14-36); Bilirubin,Total 0.4 mg/dL (0.2-1.3); Blood Urea Nitrogen 20 mg/dL (7-17); Carbon Dioxide 26 mmol/L (22-30); Chloride 106 mmol/L (98-107); Estimated CRCL calculation 72 ml/min; Estimated Glomerular Filt Rate > 60; Glucose 101 mg/dL (65-110); Lipase 193 U/L (23-300); Potassium 4.5 mmol/L (3.4-5.0); Sodium 137 mmol/L (137-145)
--- OUTSIDE RECORDS SUMMARY | 2024-11-26 15:30 | XMS_ITS | Clinical Summary ---
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
--- OUTSIDE RECORDS SUMMARY | 2024-11-26 15:30 | XMS_ITS | Clinical Summary ---
Author Organization [facility] Address [address], [address] [address] Phone Care Team Providers Care Review Nurse Name Role Phone Juni Hollingsworth MD Primary Care Provider [phone]- [phone] Allergies Active Allergy Reactions Criticality Noted Date [...] Comments Blood Pressure 146/89 09/25/2017 10:39 AM PRINCIPAL TECHNOLOGIST Pulse 79 09/25/2017 9:12 AM PRINCIPAL TECHNOLOGIST Temperature 36 C (96.8 F) 09/25/2017 10:39 AM PRINCIPAL TECHNOLOGIST Respiratory Rate 16 09/25/2017 10:39 AM PRINCIPAL TECHNOLOGIST Oxygen Saturation 100% 09/25/2017 10:39 AM PRINCIPAL TECHNOLOGIST Inhaled Oxygen Concentration - - Weight 71.2 kg (157 lb) 09/11/2017 1:00 PM PRINCIPAL TECHNOLOGIST Height 170.2 cm (5' 7 ) 09/11/2017 1:00 PM PRINCIPAL TECHNOLOGIST Body Mass Index 24.59 09/11/2017 1:00 PM PRINCIPAL TECHNOLOGIST Plan of Treatment Health Maintenance Due Date [...] Most Recently Relevant to Health Maintenance Insurance [facility] Care Teams Review Nurse Relationship Specialty Start Date End Date Juni Hollingsworth MD [address] [place] [phone] PCP - General Family Medicine 09/25/17
--- NOTE | 2024-11-26 15:41 | ECG_ITS ---
Test Date: 2024-11-26 16:52:40 Measurements Intervals [place] Rate: 71 P: 57 NH: 128 QRS: 67 QRSD: 90 T: 55 QT: 388 QTc: 424 Interpretive Statements SINUS RHYTHM POSSIBLE LEFT ATRIAL ENLARGEMENT LOW QRS VOLTAGE IN PRECORDIAL LEADS BORDERLINE R WAVE PROGRESSION, ANTERIOR LEADS BASELINE ARTIFACT- V5 BORDERLINE ECG No previous ECG available for comparison Electronically Signed On 11-26-2024 16:52:57 CDT by Nilton Euceda D.O.
[2024-11-26 16:14] LABS: Troponin I < 0.012 ng/mL (0.000-0.034)
[2024-11-26] MEDS: BELLADONNA ALK/PHENOB ELIX 10 ML, MAG HYDROX/ALUMINUM HYD/SIMETH 30 ML, LIDOCAINE 2% VI... PO (16:53)
--- NOTE | 2024-11-26 17:08 | ED.ABDPAIN ---
HPI - Abdominal Pain General Chief Complaint: Abdominal Pain Stated Complaint: Poss Pancreatitis flare up Time Seen by Provider: 11/26/24 15:03 Source: patient Mode of arrival: ambulatory Limitations: no limitations History of Present Illness HPI narrative: Patient is a 54-year-old female who presents the ED with report of epigastric abdominal pain. Patient reports pain began on Saturday and has been persistent since then. She has history of gallbladder issues and pancreatitis in 2018 and states pain feels somewhat similar to what she experienced at that time. She has since had cholecystectomy. Reports nausea and abdominal fullness, with a few episodes of vomiting over the past couple of days. Denies diarrhea, constipation, fevers, chest pain, shortness of breath. Related Data Home Medications ?Medication ?Instructions ?Recorded ?Confirmed ?Last Taken ?Type cholecalciferol (vitamin D3) 125 125 mcg PO DAILY 07/06/21 05/12/24 Unknown History mcg (5,000 unit) capsule Estradiol .Route 05/12/24 05/12/24 Unknown History Liothyronine .Route 05/12/24 05/12/24 Unknown History Progesterone .Route 05/12/24 05/12/24 Unknown History levothyroxine 137 mcg capsule 137 mcg PO DAILY 05/12/24 05/12/24 Unknown History (Tirosint) Allergies Allergy/AdvReac Type Severity Reaction Status Date / Time hydrocodone Allergy Unknown Unknown Verified 05/12/24 08:16 morphine Allergy Unknown Unknown Verified 05/12/24 08:16 tetracycline Allergy Unknown Unknown Verified 05/12/24 08:16 zolpidem Allergy Unknown Unknown Verified 05/12/24 08:16 Sulfa (Sulfonamide Allergy Rash Verified 05/12/24 08:16 Antibiotics) Review of Systems Review of Systems: All systems reviewed & are unremarkable except as noted in HPI. All systems reviewed & are unremarkable except as noted in HPI and below PMFSH Past Medical History Medical History Migraine BMI 27.0-27.9,adult BMI 26.0-26.9,adult LUQ pain Hormone imbalance Abdominal pain Thyroid disease Frequent UTI Surgical History Surgical History History of breast augmentation History of Hx of knee surgery H/O: hysterectomy Family History Family History Other Cerebrovascular accident Depression Diabetes mellitus Family history of Alzheimer's disease Family history of lung cancer Family history of mental disorder Social History Social History Smoking status: Never smoker Alcohol intake: current Alcohol use details: 1-4 Substance use: current Do You Feel Safe in your Home?: Yes Lack of Transportation: No Lack of Food: Never True Current Housing: I Have Housing Concerned About Future Housing: No Difficulty Paying Gas/Electric Bills: No Difficulty Paying for Meds: No Currently Unemployed: No Education: Trade/Vocational Certificate Difficulty w/ Childcare or Family Care: No Living arrangements: with family 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 HEAD: Normocephalic, atraumatic. RESPIRATORY: Airway patent, respirations nonlabored. Clear to auscultation bilaterally, no rales, rhonchi, wheezing. CARDIOVASCULAR: Regular rate and rhythm without murmurs, rubs, or gallops. ABDOMINAL: Soft, mild tenderness to palpation in epigastric region. No rebound, nondistended. Normoactive BS. MUSCULOSKELETAL: Moves all extremities. No gross deformities. SKIN: Warm, dry, normal color. NEURO: A&O X3. Speech clear. Cranial nerves II-XII grossly intact. Steady gait. No ataxic movements. PSYCHIATRIC: Appropriate mood and affect. Normal interaction. Course Vital Signs Vital signs: Vital Signs Temperature 98.1 F 11/26/24 14:22 Pulse Rate 87 11/26/24 14:22 Respiratory Rate 18 11/26/24 14:22 Blood Pressure 160/87 H 11/26/24 14:22 Pulse Oximetry 100 11/26/24 14:22 Oxygen Delivery Room Air 11/26/24 14:22 Temperature 98.1 F 11/26/24 14:22 Pulse Rate 87 11/26/24 14:22 Respiratory Rate 18 11/26/24 14:22 Blood Pressure 160/87 H 11/26/24 14:22 Pulse Oximetry 100 11/26/24 14:22 Oxygen Delivery Room Air 11/26/24 14:22 MDM - Abdominal Pain MDM Narrative Medical decision making narrative: Patient presented to ED with several day history of epigastric abdominal pain. History of pancreatitis past related to gallbladder etiology. Status post cholecystectomy. Vital signs stable upon arrival. Patient is in no acute distress. Declined pain or nausea medicine upon my evaluation. EKG without ST changes. Troponin is undetectable. Basic laboratory studies are unremarkable. No leukocytosis. Stable electrolytes. Normal LFTs and lipase. CT of the abdomen/pelvis was obtained and unremarkable. 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 Patient given GI cocktail in the ED. On reeval, she is feeling improved. Discussed overall reassuring w/u. Suspect gastritis picture. Will d/c on PPI. Recommended close f/u with PCP for further evaluation. Given return precautions. Patient is in agreement with plan. Feels comfortable going home. D/C in stable condition. Medical Records Attestation: I reviewed the patient's medical records. Lab Data Attestation: I reviewed the patient's lab results. 11/26/24 15:09 11/26/24 15:09 Labs: Lab Results 11/26/24 Range/Units 15:09 WBC 7.6 (4.5-10.0) K/mm3 RBC 5.19 (4.2-5.4) M/mm3 Hgb 14.4 (12.0-15.0) g/dL Hct 44.7 (37.0-47.0) % MCV 86.1 (80-100) fl MCH 27.7 (26-34) pg MCHC 32.2 (32-36) g/dl RDW 12.5 (11.5-14.5) % Plt Count 267 (150-375) k/mm3 MPV 10.2 (7.4-10.4) fl Immature Gran % (Auto) 0.3 (0-0.5) % Neut % (Auto) 49.0 (45.5-73.1) % Lymph % (Auto) 38.0 (18.3-44.2) % [place] % (Auto) 8.7 H (2.6-8.5) % Eos % (Auto) 3.6 (0-4.4) % Baso % (Auto) 0.4 (0.2-1.2) % Lymph # (Auto) 2.88 (0.9-3.2) K/mm3 [place] # (Auto) 0.7 H (0.1-0.6) K/mm3 Eos # (Auto) 0.3 (0-0.3) K/mm3 Baso # (Auto) 0.0 (0.0-0.1) K/mm3 Abs Immat Gran (auto) 0.02 (0.00-0.031) K/mm3 Absolute Neuts (auto) 3.7 (1.3-6.7) K/mm3 Absolute Nucleated RBC 0.000 (0.0-0.012) K/mm3 Nucleated RBC % 0.0 (0.0-0.2) % Sodium 137 (137-145) mmol/L Potassium 4.5 (3.4-5.0) mmol/L Chloride 106 (98-107) mmol/L Carbon Dioxide 26 (22-30) mmol/L Anion Gap 5 (4-12) mmol/L BUN 20 H (7-17) mg/dL Creatinine 0.81 (0.7-1.0) mg/dL Estim Creat Clear Calc 72 ml/min Estimated GFR > 60 (59 - ) Glucose 101 (65-110) mg/dL Calcium 9.0 (8.4-10.2) mg/dL Total Bilirubin 0.4 (0.2-1.3) mg/dL AST 33 (14-36) U/L ALT 50 H (6-35) U/L Alkaline Phosphatase 86 (38-126) U/L Troponin I < 0.012 (0.000-0.034) ng/mL Total Protein 7.0 (6.3-8.2) g/dL Albumin 3.9 (3.5-5.1) g/dL Lipase 193 (23-300) U/L Imaging Data Attestation: I personally reviewed and interpreted this imaging study as follows: Radiologist's impression: ITS Impressions Abdomen/Pelvis CT 11/26/24 16:35 IMPRESSION: 1. No acute abdominal abnormality. 2: Chronic fusiform dilation of the common bile duct, suspicious for type I choledochal cyst. ECG Data EKG #1: Attestation: I personally reviewed and interpreted this ECG as follows: ECG completion date: 11/26/24 ECG completion time: 16:52 normal rate (71), sinus rhythm and no ST changes Discharge Plan Discharge Clinical Impression: Epigastric abdominal pain Patient Disposition: Home, Self-Care Condition: Stable Instructions: Antibiotic Form, Gastritis (ED), Diet for Stomach Ulcers and Gastritis (ED), GERD (Gastroesophageal Reflux Disease) (ED) Additional Instructions: Take Protonix daily as prescribed. Avoid foods that are very greasy, spicy, fatty, acidic. Avoid eating food late at night or laying flat directly after eating. Follow-up with primary care doctor and/or GI for further evaluation. Return to the ED if you experience worsening or severe symptoms, chest pain, difficulty breathing, unable to keep down food or drink, or any other symptoms of concern. Patient Language: Frisian Prescriptions: New pantoprazole [Protonix] 20 mg tablet,delayed release (DR/EC) 20 mg PO HS 42 Days Qty: 42 0RF No Action cholecalciferol (vitamin D3) 125 mcg (5,000 unit) capsule 125 mcg PO DAILY Progesterone .Route Rx Instructions: 1000mg QD levothyroxine [Tirosint] 137 mcg capsule 137 mcg PO DAILY Liothyronine .Route Rx Instructions: 70mcg divided into 3 doses Estradiol .Route Rx Instructions: 3mg twice weekly Follow-up/Referrals: Hipolito Lopez MD [Physician] - (GI) Soumya Nolan APRN [Primary Care Provider] - Time of Disposition: 17:30
[2024-11-26 17:20] LABS: Add Urine Microscopic? NO; Appearance Urine Clear (Clear); Bilirubin Urine Negative (Negative); Blood Urine Negative (Negative); Color Urine Yellow (Yellow); Glucose Urine UA Negative (Negative); Ketones Urine Negative (Negative); Leukocyte Esterase Ur Negative LEU/UL (Negative); Nitrate Urine Negative (Negative); Protein Urine Negative (Negative); Specific Grav Ur > 1.045 (1.001-1.035); Urobilinogen Urine 0.2 mg/dL (<2.0); pH Urine 5.5 (5.0-9.0)
[2024-11-26] MEDS: PANTOPRAZOLE SODIUM IV 40 MG VIAL IV PUSH (17:43)
== END 2024-11-26 17:49 | disposition home or self-care (01) ==
PROVIDERS: Emergency Medicine; Emergency Provider Physician Assistant; PCP Nurse Practitioner Adult Health
DX: R10.13 Epigastric pain (principal)
CPT/HCPCS: 36415; 74177; 80053; 81003; 83690; 84484; 85025; 93005; 96374; 99284; A9270; J2470; Q9967

== ENCOUNTER 2024-12-19 13:50 | Emergency (ER) | payer BC, SELFPAY ==
[2024-12-19 13:57] VITALS: BP 147/95; PULSE 84; RESP 18; TEMP 37.2; O2SAT 100
--- NOTE | 2024-12-19 14:15 | ED.SKABFB ---
HPI - Skin/Abscess/Foreign Bdy General Chief complaint: Skin/Abscess/Foreign Body Stated complaint: cyst, painful in bikini line Time Seen by Provider: 12/19/24 14:10 Source: patient, RN notes reviewed and old records reviewed Mode of arrival: ambulatory Limitations: no limitations History of Present Illness HPI narrative: 54-year-old female presents to [facility] care with complaints of painful red raised bump on the left side of her pubis for the past 3-4 days. Patient reports that she has been applying warm wash cloths to bump. Area is 2cmX 2 cm with center indurated area with surrounding redness.Patient reports that she has had no drainage from from area and has not had any fevers. MD complaint: abscess/boil Onset (ago): day(s) (3-4) Location: genitals (left groin area) Severity: moderate Quality: aching Treatments prior to arrival: other (Warm compresses) Related Data Home Medications ?Medication ?Instructions ?Recorded ?Confirmed ?Last Taken ?Type cholecalciferol (vitamin D3) 125 125 mcg PO DAILY 07/06/21 05/12/24 Unknown History mcg (5,000 unit) capsule Estradiol .Route 05/12/24 05/12/24 Unknown History Liothyronine .Route 05/12/24 05/12/24 Unknown History Progesterone .Route 05/12/24 05/12/24 Unknown History levothyroxine 137 mcg capsule 137 mcg PO DAILY 05/12/24 05/12/24 Unknown History (Tirosint) Allergies Allergy/AdvReac Type Severity Reaction Status Date / Time hydrocodone Allergy Unknown Unknown Verified 12/19/24 14:05 morphine Allergy Unknown Unknown Verified 12/19/24 14:05 tetracycline Allergy Unknown Unknown Verified 12/19/24 14:05 zolpidem Allergy Unknown Unknown Verified 12/19/24 14:05 Sulfa (Sulfonamide Allergy Rash Verified 12/19/24 14:05 Antibiotics) Review of Systems Review of Systems: CONSTITUTIONAL: Denies fever, chills, or sweats. CARDIOVASCULAR: Denies chest pain, palpitations, or edema. RESPIRATORY: Denies cough or dyspnea. GASTROINTESTINAL: Denies abdominal pain, nausea, vomiting SKIN: Reports redness and swelling bump to left pubis area tenderness with center indurated area with surrounding redness no drainage noted. MUSCULOSKELETAL: Denies myalgia. NEUROLOGIC: Denies headache, numbness All systems reviewed & are unremarkable except as noted in HPI and below PMFSH Past Medical History Medical History Migraine BMI 27.0-27.9,adult BMI 26.0-26.9,adult LUQ pain Hormone imbalance Abdominal pain Thyroid disease Frequent UTI Surgical History Surgical History History of breast augmentation History of Hx of knee surgery H/O: hysterectomy Family History Family History Other Cerebrovascular accident Depression Diabetes mellitus Family history of Alzheimer's disease Family history of lung cancer Family history of mental disorder Social History Social History Smoking status: Never smoker Alcohol intake: current Alcohol use details: 1-4 Substance use: current Do You Feel Safe in your Home?: Yes Lack of Transportation: No Lack of Food: Never True Current Housing: I Have Housing Concerned About Future Housing: No Difficulty Paying Gas/Electric Bills: No Difficulty Paying for Meds: No Currently Unemployed: No Education: Trade/Vocational Certificate Difficulty w/ Childcare or Family Care: No Living arrangements: with family 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 There is no relevant family history pertinent to the presenting complaint Exam Narrative: GENERAL: Well-appearing, well-nourished, and in no acute distress. HEAD: Normocephalic, atraumatic. EYES: PERRLA and EOMI. ENT: Nares clear, no rhinorrhea or epistaxis. Mucous membranes moist. NECK: Supple.no lymphadenopathy CHEST: Clear to auscultation. No respiratory distress. no cough noted SAO2 100% on room air HEART: Regular rate and rhythm. No murmur heard. Normal peripheral pulses. ABDOMEN: Soft, nontender, nondistended, normal active bowel sounds. EXTREMITIES: Normal range of motion. No edema. SKIN: Warm, dry. Erythema, induration, tenderness, warmth with area noted to be 2cm X 2cm no drainage or fluctuation of tissue. No vesicles, bullae, necrosis, ecchymosis, crepitus noted NEURO: No focal deficits. Alert and oriented x3. Course Course Emergency Course: Patient is aware of diagnosis, understands and agrees to treatment plan. Anticipatory guidance given. Patient agrees to follow-up as directed and is aware of reasons to seek care at the emergency department. Portions of this record may have been created with voice recognition software Level of Care: Express Care Visit Vital Signs Vital signs: Vital Signs Temperature 37.2 C 12/19/24 13:57 Pulse Rate 84 12/19/24 13:57 Respiratory Rate 18 12/19/24 13:57 Blood Pressure 147/95 H 12/19/24 13:57 Pulse Oximetry 100 12/19/24 13:57 Oxygen Delivery Room Air 12/19/24 13:57 Temperature 37.2 C 12/19/24 13:57 Pulse Rate 84 12/19/24 13:57 Respiratory Rate 18 12/19/24 13:57 Blood Pressure 147/95 H 12/19/24 13:57 Pulse Oximetry 100 12/19/24 13:57 Oxygen Delivery Room Air 12/19/24 13:57 Reviewed MDM - Skin/Abscess/Foreign Bdy MDM Narrative Medical decision making narrative: Does not appear at this time to be erythema multiforme, bullous, SJS, TEN; no evidence at this time to suggest RMSF, endocarditis or Lyme disease; patient looks well, nontoxic and is tolerating oral intake; no neurologic signs or symptoms; no headache, photophobia or neck pain; afebrile; appropriate for initial outpatient treatment; discussed the importance of follow-up, patient agrees. Patient does not have history of penetrating trauma, laceration, blunt trauma, recent surgery, immunosuppression, malignancy, obesity, alcoholism, corticosteroid use. Question cellulitis, necrotizing soft tissue infection, abscess. Differential Diagnosis Differential diagnosis: Likely abscess of skin or subcutaneous tissue, cellulitis and other (boil in left pubis area) Medical Records Attestation: I reviewed the patient's medical records. Critical Care Time Critical Care Time Critical Care Time: No Discharge Plan Discharge Clinical Impression: Abscess of groin, left Patient Disposition: Home Condition: Stable Instructions: Antibiotic Form, Abscess (ED) Additional Instructions: Cleanse area with liquid dial soap twice daily, rinse and apply Mupiricin ointment to area watch for increasing infection--redness, swelling, drainage Tylenol Ibuprofen or Aleve for any pain follow up with PCP in 7-10 days for a wound check recheck if develop fever, chills, increasing symptom Go to the ER if your symptoms become worse of if ANY new symptoms develop Antibiotic as prescribed complete all doses take with food If your symptoms persist, change or worsen significantly before you can contact your personal physician then please, without delay, go to the emergency department for further evaluation. Follow-up with PCP in 7-10 days or sooner if needed Follow up with PCP soon in regards to your blood pressure which is elevated above threshold for referral. Blood pressure above 120/80 may indicate pre-hypertension. One Patient Language: French Prescriptions: New clindamycin HCl [Cleocin HCl] 300 mg capsule 300 mg PO Q8H 10 Days Qty: 30 0RF Rx Instructions: take with food mupirocin [Centany] 2 % ointment 1 applic topical BID Qty: 22 0RF No Action cholecalciferol (vitamin D3) 125 mcg (5,000 unit) capsule 125 mcg PO DAILY Progesterone .Route Rx Instructions: 1000mg QD levothyroxine [Tirosint] 137 mcg capsule 137 mcg PO DAILY Liothyronine .Route Rx Instructions: 70mcg divided into 3 doses Estradiol .Route Rx Instructions: 3mg twice weekly pantoprazole [Protonix] 20 mg tablet,delayed release (DR/EC) 20 mg PO HS 42 Days Qty: 42 0RF Follow-up/Referrals: Soumya Nolan APRN [Primary Care Provider] - Time of Disposition: 14:24 Quality [place] Coma Scale Eyes: Open Verbal: Oriented and Alert Motor: Follows Commands [place] Coma Total Score: 15
== END 2024-12-19 14:30 | disposition home or self-care (01) ==
PROVIDERS: Emergency Provider Registered Nurse; PCP Nurse Practitioner Adult Health
DX: L02.214 Cutaneous abscess of groin (principal)
CPT/HCPCS: 99213; G0463

== ENCOUNTER 2025-04-22 11:01 | Outpatient (CLI) | payer BC, SELFPAY ==
--- NOTE | ~2025-04-22 | US_ITS ---
US thyroid INDICATION: Abnormal laboratory values TECHNIQUE: Real-time sonographic images of the thyroid gland were obtained. COMPARISON: No prior studies for comparison. FINDINGS: The right thyroid lobe measures 2.4 x 0.6 x 0.9 cm. The left thyroid lobe measures 1.5 x 0.6 x 0.7 cm. There is normal echotexture and echogenicity throughout the thyroid gland. No solid masses. In the right lobe there is a 3 mm cyst. Normal vascular flow is present. IMPRESSION: 1. Unremarkable thyroid ultrasound. No suspicious masses are identified which meet sonographic criteria for biopsy. Reviewed, dictated and finalized at location O.
== END 2025-04-22 11:02 | disposition home or self-care (01) ==
PROVIDERS: PCP Chiropractor; Visit Provider Nurse Practitioner Family
DX: R79.89 Other specified abnormal findings of blood chemistry (principal); E34.9 Endocrine disorder, unspecified
CPT/HCPCS: 76536